=== PATIENT | male | born 1950 | race Caucasian/White ===

== ENCOUNTER → 2017-02-18 | Outpatient (CLI) | payer OTHER, MEDICARE ==
[~2017-02-18] MED LIST: CEPH500C PO; OXYC1TAB3 PO; UNABLE
[2017-02-18 12:56] LABS: BLOOD UREA NITROGEN 14 mg/dl (7-18); BUN/CREATININE RATIO 12.8 (10-20); CALCIUM 9.1 mg/dl (8.5-10.1); CARBON DIOXIDE 27 mmol/L (21-32); CHLORIDE 104 mmol/L (98-107); CHOLESTEROL 171 mg/dl (0-200); GLUCOSE 105 mg/dl (70-99); POTASSIUM 4.1 mmol/L (3.5-5.1); SODIUM 138 mmol/L (136-145)
[2017-02-18 13:06] LABS: CHOLESTEROL/HDL RATIO 3.9; HDL CHOLESTEROL 44 mg/dl; TRIGLYCERIDES 345 mg/dl (0-150); VERY LOW DENSITY LIPOPROT CALC 69 mg/dl
[2017-02-18 13:09] LABS: ESTIMATED AVERAGE GLUCOSE 108 mg/dl; HA1C FLAG Normal (Normal)
== END | disposition home or self-care (01) ==
LOC: C.LABSPEC 12:24
PROVIDERS: ATTEND Internal Medicine
DX: Z00.01 Encounter for general adult medical examination with abnormal findings (principal); R73.9 Hyperglycemia, unspecified; I10 Essential (primary) hypertension; E78.5 Hyperlipidemia, unspecified; E03.9 Hypothyroidism, unspecified

== ENCOUNTER → 2017-03-19 | Outpatient (CLI) | payer OTHER, MEDICARE | END | disposition home or self-care (01) | LOC: C.LABSPEC 15:31 | PROVIDERS: ATTEND Internal Medicine | DX: Z12.11 Encounter for screening for malignant neoplasm of colon (principal) ==

== ENCOUNTER → 2017-05-14 | Outpatient (CLI) | payer OTHER, MEDICARE ==
[~2017-05-14] MED LIST changes: +OXYC-90 PO; -OXYC1TAB3 PO
[2017-05-14 13:40] LABS: HEMOGLOBIN A1C 5.2 % (4.5-5.6)
[2017-05-14 14:33] LABS: ALBUMIN 3.7 gm/dl (3.4-5.0); ALT/SGPT 38 U/L (12-78); AST/SGOT 21 U/L (15-37); BLOOD UREA NITROGEN 13 mg/dl (7-18); CALCIUM 8.9 mg/dl (8.5-10.1); CARBON DIOXIDE 28 mmol/L (21-32); CREATININE 1.11 mg/dl (0.60-1.40); GLUCOSE 105 mg/dl (70-99); SODIUM 135 mmol/L (136-145)
[2017-05-14 14:50] LABS: ALKALINE PHOSPHATASE 40 U/L (45-117); CHOLESTEROL 165 mg/dl (0-200); LDL CHOLESTEROL (DIRECT) 98 mg/dl; TOTAL PROTEIN 7.6 gm/dl (6.4-8.2)
== END | disposition home or self-care (01) ==
LOC: C.LABSPEC 12:26
PROVIDERS: ATTEND Internal Medicine
DX: E78.5 Hyperlipidemia, unspecified (principal); R73.9 Hyperglycemia, unspecified; I10 Essential (primary) hypertension

== ENCOUNTER → 2017-07-08 | Outpatient (CLI) | payer OTHER, MEDICARE ==
[~2017-07-08] MED LIST changes: -OXYC-90 PO; +OXYC1TAB3 PO
== END | disposition home or self-care (01) ==
LOC: C.LABSPEC 14:25
PROVIDERS: ATTEND Internal Medicine
DX: E03.9 Hypothyroidism, unspecified (principal)

== ENCOUNTER 2024-10-26 10:53 | Observation (INO) ==
[2024-10-26] MEDS: ALBUT/IPRATROP 3MG/0.5MG NEB 3 ML VIAL INH STA (11:25)
[2024-10-26] MEDS: SODIUM CHLORIDE 0.9% 500 ML IV ONE (11:25)
[2024-10-26 11:37] LABS: Basophils # (auto) 0.08 K/uL (0.00-0.20); Basophils % (auto) 0.6 %; Eosinophils % (auto) 4.4 %; Hematocrit (blood only) 47.8 % (42.0-52.0); Hemoglobin 16.8 g/dl (14.0-18.0); Immature Granulocytes # (auto) 0.12 K/uL (0.01-0.20); Immature Granulocytes % (auto) 0.9 %; Lymphocytes # (auto) 1.86 K/uL (1.20-3.40); Lymphocytes % (auto) 13.6 %; Mean Corpuscular Hemoglobin 31.1 pg (25.0-34.0); Mean Corpuscular Hgb Conc 35.1 g/dL (32.0-36.0); Mean Corpuscular Volume 88.4 fL (80.0-100.0); Mean Platelet Volume 9.7 fL (9.4-12.4); Monocytes # (auto) 1.01 K/uL (0.11-0.59); Monocytes % (auto) 7.4 %; Neutrophils # (auto) 10.04 K/uL (1.40-6.50); Neutrophils % (auto) 73.1 %; Platelet Count 289 K/uL (130-400); RDW Coefficient of Variation 15.9 % (11.5-14.5); Red Blood Count 5.41 M/uL (4.70-6.10); White Blood Count 13.71 K/ul (4.8-10.8)
--- NOTE | 2024-10-26 11:42 | XRay Report ---
XR chest 1V portable CLINICAL HISTORY: Dyspnea COMPARISON STUDY: 10/18/2024 FINDINGS: Heart size and pulmonary vasculature are normal. No effusion, consolidation, or pneumothora x. IMPRESSION: No acute findings. ACT 112: Negative or not required by law. Electronically signed by: Raheem iH M.D. 10/26/2024 11:40 AM
--- NOTE | 2024-10-26 11:44 | Emergency Department Note ---
Impression & Plan Hypoxia ED Provider Note CHIEF COMPLAINT: Shortness of breath, hypoxia HISTORY OF PRESENT ILLNESS: This 74-year-old male patient past medical history of recent enterovirus infection with diarrhea, acute kidney injury and hospitalization presents to the emergency department with complaints of shortness of breath. The patient went to his primary care today for follow-up after discharge from the hospital and was noted to be hypoxic with an increased work of breathing. Patient's states that this that he is walked since being in the hospital. He denies chest pain or coughing. He admits that there is some bright red blood in his stools which he correlated to frequent bowel movements and wiping. He denies dark black or tarry stools. He has not been vomiting. REVIEW OF SYSTEMS: A review of systems was performed with positives and pertinent negatives listed in the history of present illness. 10 systems were reviewed and are otherwise negative. ALLERGIES: see below MEDICATIONS: see below PMH: see below SOCIAL HISTORY: see below DDx: Pulmonary embolus, pneumonia, anemia, cardiac arrhythmia, dehydration, UTI among others. PHYSICAL EXAM: Vital signs reviewed. General: Well-appearing 74-year-old male, in no significant distress. HEENT: No scleral icterus, PERRLA, neck supple. Moist mucous membranes Cardiovascular: tachycardic but regular, no extra sounds Pulmonary: Clear to auscultation bilaterally, normal work of breathing. Abdomen: Soft, nontender, nondistended, positive bowel sounds. Musculoskeletal: Atraumatic, no peripheral edema. Neurologic: Patient awake alert and oriented x 3, speech is clear Skin: Warm, dry, no rash EMERGENCY DEPARTMENT COURSE/MDM: this patient was evaluated and appeared to be in no significant distress. IV access was obtained and laboratory work was drawn. The patient is noted to be hypoxic on room air and was placed on nasal cannula oxygen with good results. Patient was on 4 L and saturating in the mid 90s. Given his recent hospitalization, CT imaging of the chest was performed to rule out PE and is negative. There is no evidence of pneumonia. patient was given 60 mg of IV Solu-Medrol and a DuoNeb treatment. Respiratory BioFire panel is negative. The etiology of the patient's hypoxia is unclear at this time. Laboratory work is fairly reassuring. He will be evaluated by the hospitalist service for admission and further management. MONITORING: An order for cardiac monitoring was placed and the patient is noted to be in a sinus tachycardia at 107 beats per minute. RADIOLOGY: chest x-ray to my interpretation reveals no evidence of focal lung consolidation or failure. CT of the chest: IMPRESSION: 1. No pulmonary emboli identified. 2. No acute intrathoracic findings. 3. Mild dilatation of the ascending aorta measuring 4.4 cm at the level of the main pulmonary artery. EKG: To my interpretation reveals normal sinus rhythm at 73 bpm, overall low voltage, QTC of 429, no PVC, no PAC. DISPOSITION: Admission Past Med/Surg History Problem List (Updated 10/26/24 @ 19:15 by Polly Olson MD) Hypoxia (Acute) Enteropathogenic Escherichia coli infection Hypoxia Elevated lactic acid level Hypomagnesemia Acute hypokalemia Acute hyponatremia Acute hypotension (Acute) Acidosis, lactic (Acute) Acute dehydration (Acute) Diarrhea (Acute) Colitis (Acute) Acute dehydration (Acute) Nausea (Acute) Gout with tophi Obesity (BMI 30.0-34.9) Hyperlipidemia Hypertension Medical History Diarrhea MINOO (acute kidney injury) Sepsis Bacterial enterocolitis Enteropathogenic Escherichia coli infection Prediabetes Hypothyroidism Depression Hearing deficit [facility] Surgical History History of wisdom tooth extraction History of bunionectomy RT FOOT History of colonoscopy Family History Son Family history of diabetes mellitus Denies family history of Ovarian cancer Prostate cancer Myocardial infarction Breast cancer Colorectal cancer Social History Smoking Status: Never smoker Second Hand Exposure: No; Do You Dip or Chew Tobacco: No; Hx Alcohol Use: Yes Alcohol type: beer Hx Substance Use: No Preferred Language: Hebrew Communication Ability: Effective Communication Ability Comment: Graduated from 12th grade Hearing Ability: Normal Escrow Representative Required: No Beliefs That Will Affect Care: None marital status: marital status details: 1 son killed @ MVA @ 29 yrs of age due to hypoglycemia in car from [place] Current Living Situation: Spouse Current Living Situation Comment: Lives with at home; walks and drives independently current occupational status: retired and 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 How many Children do You have: 1 How many Children do You have Comment: 1 surviving son, 56 yrs old, and living with patient's granddaughter. 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 Feels Safe at Home: Yes Safety Concerns: Feels Safe At This Time Diet: regular caffeine: Yes Dental Care, Regularly: Yes Physical Activity Frequency: 3-4 Times per Week Seatbelt Use: always Do you think of yourself as: straight/heterosexual Assistive Devices: Glasses Allergies Allergies Allergy/AdvReac Type Severity Reaction Status Date / Time No Known Allergies Allergy Verified 10/26/24 10:20 Home Meds Home Medications Medication Instructions Recorded Confirmed aspirin 81 mg tablet,delayed 81 mg PO QAM 10/10/18 10/26/24 release cholecalciferol (vitamin D3) 50 50 mcg PO DAILY 10/13/24 10/26/24 mcg (2,000 unit) tablet (Vitamin D3) cyanocobalamin (vitamin B-12) 1,000 mcg PO DAILY 10/13/24 10/26/24 1,000 mcg tablet (Vitamin B-12) ondansetron HCl 4 mg tablet 4 mg PO Q8H PRN Nausea And Vomiting 10/26/24 10/26/24 vit C 50 mg-E 15 unit-zinc cit 4.5 2 tab PO DAILY 10/26/24 10/26/24 mg-lutein 2.5 mg-zeaxan chew tablet ([facility]) Previous Rx's Medication Instructions Recorded bupropion HCl 150 mg tablet,12 hr 150 mg PO BID #180 ea 12/12/23 sustained-release allopurinol 300 mg tablet 300 mg PO DAILY #90 tabs 03/09/24 atorvastatin 20 mg tablet 20 mg PO QPM #90 tabs 07/31/24 levothyroxine 150 mcg tablet 150 mcg PO 6XWK #90 tabs 08/25/24 metoprolol tartrate 25 mg tablet 25 mg PO BID #180 tabs 08/25/24 olmesartan 40 mg tablet 40 mg PO DAILY #90 tabs 08/25/24 famotidine 40 mg tablet (Pepcid) 40 mg PO BID heartburn, dyspepsia, 10/19/24 nausea/vomiting #60 tabs loperamide 2 mg capsule 2 mg PO Q4 PRN loose stool #180 10/19/24 caps magnesium oxide 400 mg PO DAILY #30 tabs 10/19/24 potassium chloride 20 mEq 20 meq PO DAILY #30 tabs 10/19/24 tablet,extended release Results & Data (ED) Vital Signs Vital Signs - 24 hr 10/26/24 10:56 10/26/24 11:04 10/26/24 11:18 Temperature 36.4 C L Temperature Source Oral Pulse Rate 116 H 110 H 107 H Pulse Rate [Exercises] Pulse Rate from SpO2 Sensor Respiratory Rate 18 22 20 Respiratory Rate [Exercises] Blood Pressure 120/81 118/87 Blood Pressure Mean 94 92 Pulse Oximetry 95 93 Pulse Oximetry [Exercises] Oxygen Delivery Method Room Air Nasal Cannula Oxygen Flow Rate 4 Sepsis Recent Fever Within 48 Hours No Sepsis New/Unexplained Change in Mental Status N/A Sepsis Action Taken by Nursing No Action Required 10/26/24 11:18 10/26/24 11:33 10/26/24 11:42 Temperature Temperature Source Pulse Rate 107 H 109 H 102 H Pulse Rate [Exercises] Pulse Rate from SpO2 Sensor 106 H 106 H 102 H Respiratory Rate 20 13 14 Respiratory Rate [Exercises] Blood Pressure Blood Pressure Mean Pulse Oximetry 95 95 97 Pulse Oximetry [Exercises] Oxygen Delivery Method Oxygen Flow Rate Sepsis Recent Fever Within 48 Hours Sepsis New/Unexplained Change in Mental Status Sepsis Action Taken by Nursing 10/26/24 11:54 10/26/24 11:57 10/26/24 12:20 Temperature Temperature Source Pulse Rate 101 H 99 H Pulse Rate [Exercises] Pulse Rate from SpO2 Sensor 101 H 99 H Respiratory Rate 17 13 Respiratory Rate [Exercises] Blood Pressure 118/93 115/73 Blood Pressure Mean 101 83 Pulse Oximetry 97 95 Pulse Oximetry [Exercises] Oxygen Delivery Method Oxygen Flow Rate Sepsis Recent Fever Within 48 Hours Sepsis New/Unexplained Change in Mental Status Sepsis Action Taken by Nursing 10/26/24 12:20 10/26/24 12:24 10/26/24 12:27 Temperature Temperature Source Pulse Rate 99 H 100 H Pulse Rate [Exercises] Pulse Rate from SpO2 Sensor 98 H 101 H Respiratory Rate 20 18 Respiratory Rate [Exercises] Blood Pressure 115/73 Blood Pressure Mean 83 Pulse Oximetry 95 94 Pulse Oximetry [Exercises] Oxygen Delivery Method Oxygen Flow Rate Sepsis Recent Fever Within 48 Hours Sepsis New/Unexplained Change in Mental Status Sepsis Action Taken by Nursing 10/26/24 12:30 10/26/24 12:30 10/26/24 12:31 Temperature Temperature Source Pulse Rate 99 H Pulse Rate [Exercises] Pulse Rate from SpO2 Sensor Respiratory Rate Respiratory Rate [Exercises] Blood Pressure 117/83 117/83 Blood Pressure Mean 94 94 Pulse Oximetry Pulse Oximetry [Exercises] Oxygen Delivery Method Oxygen Flow Rate Sepsis Recent Fever Within 48 Hours Sepsis New/Unexplained Change in Mental Status Sepsis Action Taken by Nursing 10/26/24 12:33 10/26/24 12:54 10/26/24 13:04 Temperature Temperature Source Pulse Rate 100 H 98 H Pulse Rate [Exercises] Pulse Rate from SpO2 Sensor 100 H 98 H Respiratory Rate 15 15 Respiratory Rate [Exercises] Blood Pressure 122/78 122/78 Blood Pressure Mean 92 86 Pulse Oximetry 94 96 Pulse Oximetry [Exercises] Oxygen Delivery Method Oxygen Flow Rate Sepsis Recent Fever Within 48 Hours Sepsis New/Unexplained Change in Mental Status Sepsis Action Taken by Nursing 10/26/24 13:04 10/26/24 13:18 10/26/24 13:21 Temperature Temperature Source Pulse Rate 95 H 96 H Pulse Rate [Exercises] Pulse Rate from SpO2 Sensor 94 H 96 H Respiratory Rate 16 15 Respiratory Rate [Exercises] Blood Pressure 122/78 Blood Pressure Mean 86 Pulse Oximetry 94 94 Pulse Oximetry [Exercises] Oxygen Delivery Method Oxygen Flow Rate Sepsis Recent Fever Within 48 Hours Sepsis New/Unexplained Change in Mental Status Sepsis Action Taken by Nursing 10/26/24 13:36 10/26/24 13:57 10/26/24 14:00 Temperature Temperature Source Pulse Rate 95 H 94 H Pulse Rate [Exercises] Pulse Rate from SpO2 Sensor 96 H 94 H Respiratory Rate 15 17 Respiratory Rate [Exercises] Blood Pressure 130/82 Blood Pressure Mean 110 Pulse Oximetry 91 91 Pulse Oximetry [Exercises] Oxygen Delivery Method Oxygen Flow Rate Sepsis Recent Fever Within 48 Hours Sepsis New/Unexplained Change in Mental Status Sepsis Action Taken by Nursing 10/26/24 14:00 10/26/24 14:03 10/26/24 14:39 Temperature Temperature Source Pulse Rate 94 H 96 H Pulse Rate [Exercises] Pulse Rate from SpO2 Sensor 94 H 95 H Respiratory Rate 14 15 Respiratory Rate [Exercises] Blood Pressure 130/82 Blood Pressure Mean 110 Pulse Oximetry 93 91 Pulse Oximetry [Exercises] Oxygen Delivery Method Oxygen Flow Rate Sepsis Recent Fever Within 48 Hours Sepsis New/Unexplained Change in Mental Status Sepsis Action Taken by Nursing 10/26/24 14:41 10/26/24 14:50 Temperature Temperature Source Pulse Rate Pulse Rate [Exercises] 110 H Pulse Rate from SpO2 Sensor Respiratory Rate Respiratory Rate [Exercises] 26 H Blood Pressure 146/90 H Blood Pressure Mean 97 Pulse Oximetry Pulse Oximetry [Exercises] 90 Oxygen Delivery Method Room Air Oxygen Flow Rate Sepsis Recent Fever Within 48 Hours Sepsis New/Unexplained Change in Mental Status Sepsis Action Taken by [facility]sp Medications Current Medication List: was personally reviewed by ks Laboratory Data Attestation: I reviewed the patient's lab results. 10/26/24 11:09 10/26/24 11:09 Lab Results 10/26/24 10/26/24 Range/Units 11:09 11:27 WBC 13.71 H (4.8-10.8) K/ul RBC 5.41 (4.70-6.10) M/uL Hgb 16.8 (14.0-18.0) g/dl Hct 47.8 (42.0-52.0) % MCV 88.4 (80.0-100.0) fL MCH 31.1 (25.0-34.0) pg MCHC 35.1 (32.0-36.0) g/dL RDW Std Deviation 50.0 H (36.4-46.3) fL RDW Coeff of Marlee 15.9 H (11.5-14.5) % Plt Count 289 (130-400) K/uL MPV 9.7 (9.4-12.4) fL Immature Gran % (Auto) 0.9 % Neut % (Auto) 73.1 % Lymph % (Auto) 13.6 % [place] % (Auto) 7.4 % Eos % (Auto) 4.4 % Baso % (Auto) 0.6 % Neut # (Auto) 10.04 H (1.40-6.50) K/uL Lymph # (Auto) 1.86 (1.20-3.40) K/uL [place] # (Auto) 1.01 H (0.11-0.59) K/uL Eos # (Auto) 0.60 H (0.00-0.50) K/uL Baso # (Auto) 0.08 (0.00-0.20) K/uL Immature Gran # (Auto) 0.12 (0.01-0.20) K/uL PT 11.4 (9.0-12.0) Seconds INR 1.1 (0.9-1.1) APTT 28 (21-31) Seconds PTT Ratio 1.0 Sodium 133 L (136-145) mmol/L Potassium 3.6 (3.5-5.1) mmol/L Chloride 102 (98-107) mmol/L Carbon Dioxide 21 (21-32) mmol/L Anion Gap 10 (3-11) BUN 10 (6-23) mg/dl Creatinine 1.22 (0.6-1.4) mg/dl Est Cr Clr Drug Dosing 58.3 ml/min eGFR 62.21 BUN/Creatinine Ratio 8.2 L (10-20) Glucose 94 (70-99(Fasting)) mg/dl Calcium 8.6 (8.6-10.3) mg/dl Magnesium 1.7 (1.7-2.4) mg/dl Total Bilirubin 0.8 (0.2-1.0) mg/dl AST 37 (13-39) U/L ALT 68 H (7-52) U/L Alkaline Phosphatase 69 (34-104) U/L Troponin I High Sens 11.6 (0-20) pg/ml Total Protein 6.5 (6.0-8.3) gm/dl Albumin 3.5 (3.4-5.0) gm/dl Globulin 3.0 (2.5-4.0) gm/dl Albumin/Globulin Ratio 1.2 (0.9-2) Procalcitonin 0.05 (0-0.5) ng/ml Adenovirus (PCR) Not Detected (NotDetected) B. pertussis DNA (PCR) Not Detected (NotDetected) B.parapertussis DNA PCR Not Detected (NotDetected) C. pneumoniae DNA (PCR) Not Detected (NotDetected) Coronavirus OC43 (PCR) Not Detected (NotDetected) Coronavirus HKU1 (PCR) Not Detected (NotDetected) Coronavirus 229E (PCR) Not Detected (NotDetected) SARS-CoV-2 (PCR) Not Detected (NotDetected) Coronavirus NL63 (PCR) Not Detected (NotDetected) Human Metapneumovir PCR Not Detected (NotDetected) Influenza Type A (PCR) Not Detected (NotDetected) Influenza Type B (PCR) Not Detected (NotDetected) M. pneumoniae (PCR) Not Detected (NotDetected) Parainfluenza 1 (PCR) Not Detected (NotDetected) Parainfluenza 2 (PCR) Not Detected (NotDetected) Parainfluenza 3 (PCR) Not Detected (NotDetected) Parainfluenza 4 (PCR) Not Detected (NotDetected) RSV (PCR) Not Detected (NotDetected) Entero/Rhino (PCR) Not Detected (NotDetected) Blood Type O Positive Antibody Screen NEGATIVE Administered Medications Discontinued Medications Albuterol (Albut/Ipratrop 3mg/0.5mg Neb 3 Ml Vial) 3 ml INH NOW STA Stop: 10/26/24 11:19 Last Admin: 10/26/24 11:25 Dose: 3 ml Documented By: SAVAGE Sodium Chloride (Nss) 500 mls @ 999 mls/hr IV .Q31M ONE Stop: 10/26/24 11:49 Last Infusion: 10/26/24 12:26 Dose: Infused Documented By: Admin: 10/26/24 11:25 Dose: 999 mls/hr Documented By: SAVAGE Ioversol (Optiray 320 125ml) 115 ml IV ONCE ONE Stop: 10/26/24 12:46 Last Admin: 10/26/24 12:45 Dose: 115 ml Documented By: ABS Methylprednisolone (Methylprednisolone 125 Mg/2 Ml Vial) 60 mg IV NOW STA Stop: 10/26/24 13:42 Last Admin: 10/26/24 13:46 Dose: 60 mg Documented By: SAVAGE Imaging Data Radiologist's Impression: Chest X-Ray 10/26/24 11:18 XR chest 1V portable CLINICAL HISTORY: Dyspnea COMPARISON STUDY: 10/18/2024 FINDINGS: Heart size and pulmonary vasculature are normal. No effusion, consolidation, or pneumothorax. IMPRESSION: No acute findings. ACT 112: Negative or not required by law. Electronically signed by: Raheem Hi M.D. 10/26/2024 11:40 AM Chest CTA 10/26/24 12:23 CT ANGIOGRAM OF THE CHEST CLINICAL HISTORY: Shortness of breath. Hypoxia. COMPARISON STUDY: Chest radiograph October 18, 2024 and chest radiograph performed earlier today. TECHNIQUE: Following the IV administration of 115 cc of Optiray 320, CT angiogram of the chest was performed from the upper abdomen to the thoracic inlet utilizing the pulmonary embolus protocol. Images are reviewed in the axial, sagittal, and coronal planes. 3-D MIPS images are created and assessed. IV contrast was administered without complication. A dose lowering technique was utilized adhering to the principles of ALARA. CT DOSE: 1113.45 mGy.cm FINDINGS: No pulmonary emboli are identified. There is no thoracic aortic dissection. There is mild dilatation of the ascending aorta measuring 4.4 cm at the level of the main pulmonary artery. There is no dissection within the ascending aorta. Opacification of the descending thoracic aorta is suboptimal. Size of the heart is normal. There is no pericardial effusion. A small hiatal hernia is present. There is no pneumothorax or pleural effusion. No consolidation to suggest pneumonia. Small nodular densities within the right middle lobe are unchanged since abdominal CT of October 08, 2024. These are probably chronic. There is no consolidation to suggest pneumonia. Water attenuation left upper pole renal lesions were shown to represent cysts on recent abdominal CT. IMPRESSION: 1. No pulmonary emboli identified. 2. No acute intrathoracic findings. 3. Mild dilatation of the ascending aorta measuring 4.4 cm at the level of the main pulmonary artery. ACT 112: Negative or not required by law. Electronically signed by: Marky Nieto M.D. 10/26/2024 1:22 PM Discharge Plan Visit Data Chief Complaint: Referred by Doctor Stated Complaint: DOC REF OXYGEN LOW ED Provider: Polly Olson Discharge Problem: Hypoxia Patient Disposition: Admitted As Inpatient Condition: Fair Discharge Instructions Interventions: ED Discharge Assessment Last Done: 10/26/24 17:15
[2024-10-26 11:54] LABS: Albumin Globulin Ratio 1.2 (0.9-2); Albumin Level 3.5 gm/dl (3.4-5.0); BUN Creatinine Ratio 8.2 (10-20); Bilirubin,Total 0.8 mg/dl (0.2-1.0); Calcium 8.6 mg/dl (8.6-10.3); Creatinine Clr Calc Pharmacy 58.3 ml/min; Magnesium 1.7 mg/dl (1.7-2.4); Potassium 3.6 mmol/L (3.5-5.1); Total Protein 6.5 gm/dl (6.0-8.3)
[2024-10-26 12:02] LABS: Troponin I High Sensitivity 11.6 pg/ml (0-20)
[2024-10-26 12:04] LABS: INR 1.1 (0.9-1.1); Partial Thromboplastin Time 28 Seconds (21-31); Prothrombin Time 11.4 Seconds (9.0-12.0)
[2024-10-26 12:34] LABS: Adenovirus PCR Not Detected (NotDetected); Bordetella parapertussis PCR Not Detected (NotDetected); Bordetella pertussis PCR Not Detected (NotDetected); Chlamydia pneumoniae PCR Not Detected (NotDetected); Coronavirus 229E PCR Not Detected (NotDetected); Coronavirus CoV-2 (COVID19)PCR Not Detected (NotDetected); Coronavirus HKU1 PCR Not Detected (NotDetected); Coronavirus NL63 PCR Not Detected (NotDetected); Coronavirus OC43PCR Not Detected (NotDetected); Human Metapneumovirus PCR Not Detected (NotDetected); Influenza A PCR Not Detected (NotDetected); Influenza B PCR Not Detected (NotDetected); Mycoplasma pneumoniae PCR Not Detected (NotDetected); Parainfluenza Virus 1 PCR Not Detected (NotDetected); Parainfluenza Virus 2 PCR Not Detected (NotDetected); Parainfluenza Virus 3 PCR Not Detected (NotDetected); Parainfluenza Virus 4 PCR Not Detected (NotDetected); Respiratory Syncytial VirusPCR Not Detected (NotDetected); Rhinovirus/Enterovirus PCR Not Detected (NotDetected)
[2024-10-26] MEDS: OPTIRAY 320 125ml IV ONE (12:45)
--- NOTE | 2024-10-26 13:24 | CT Scan Report ---
CT ANGIOGRAM OF THE CHEST CLINICAL HISTORY: Shortness of breath. Hypoxia. COMPARISON STUDY: Chest radiograph October 18, 2024 and chest radiograph performed earlier today. TECHNIQUE: Following the IV administration of 115 cc of Optiray 320, CT angiogram of the chest was pe rformed from the upper abdomen to the thoracic inlet utilizing the pulmonary embolus protocol. Images are reviewed in the axial, sagittal, and coronal planes. 3-D MIPS images are created and assessed. I V contrast was administered without complication. A dose lowering technique was utilized adhering to the principles of ALARA. CT DOSE: 1113.45 mGy.cm FINDINGS: No pulmonary emboli are identified. There is no thoracic aortic dissection. There is mild d ilatation of the ascending aorta measuring 4.4 cm at the level of the main pulmonary artery. There is no dissection within the ascending aorta. Opacification of the descending thoracic aorta is suboptim al. Size of the heart is normal. There is no pericardial effusion. A small hiatal hernia is present. There is no pneumothorax or pleural effusion. No consolidation to suggest pneumonia. Small nodular de nsities within the right middle lobe are unchanged since abdominal CT of October 08, 2024. These are prob ably chronic. There is no consolidation to suggest pneumonia. Water attenuation left upper pole renal lesions were shown to represent cysts on recent abdominal CT. IMPRESSION: 1. No pulmonary emboli identified. 2. No acute intrathoracic findings. 3. Mild dilatation of the ascending aorta measuring 4.4 cm at the level of the main pulmonary artery. ACT 112: Negative or not required by law. Electronically signed by: Marky Nieto M.D. 10/26/2024 1:22 PM
[2024-10-26] MEDS: methylPREDNISolone 125 MG/2 ML VIAL IV STA (13:46)
--- NOTE | 2024-10-26 13:51 | History & Physical Report ---
Date of Service October 26, 2024 Assessment & Plan (1) Hypoxia: (2) Enteropathogenic Escherichia coli infection: (3) Hypertension: Plan This patient is a 74yo male who presented on 10/26 at the behest of his PCP for new onset hypoxia. Coming in for hypoxia workup. #Hypoxia 88% on RA on arrival after ambulation Note: Patient was also hypoxic around 88% during prior admissions on 10/13 and 10/18 No h/o asthma or COPD No supplemental oxygen at baseline Does not follow with pulmonology He reports that this was been a gradual decline over the past 4 years ever since his COVID infection; acute worsening over the past 2 to 3 weeks Unclear etiology; DDx includes new onset heart failure, aspiration pneumonia (vomiting over the past week due to EPEC colitis), and nonspecific interstitial pneumonitis d/t COVID infection in 2019 (among other etiologies) Leukocytosis mildly elevated at 13 on arrival; procalcitonin WNL; will defer antibiotics at this time. Of note, he received a dose of IV steroids in the ER Ambulatory pulse ox study ordered, pending Echocardiogram ordered, pending Respiratory biofire negative Chest CTA without pulmonary embolism Titrate supplemental oxygen to maintain SpO2 >94% Continuous pulse oximetry If acute worsening, will consult pulmonology; otherwise, would recommend outpatient PFTs and pulm f/u Formal two-step prior to d/c ordered # Recent h/o infective colitis | diarrhea [place]izations on 10/13 and 10/18 for enteropathogenic E. coli infection, now improving Continue famotidine Continue loperamide PRN K + mag supplements daily #Episodes of hypotension During most recent hospitalization Suspected due to GI losses in the setting of diarrhea We will plan to restart patient on metoprolol BID, as he has been normotensive in the emergency department Hold olmesartan for now, but plan to restart over hospital course if BP tolerating #Hypothyroidism-recent TSH normal Continue levothyroxine #HLD Reinitiate atorvastatin Disposition: Obs - MedSurg VTE PPx: Lovenox 40 mg SQ q24h History of Present Illness Chief Complaint: Referred by Doctor Primary Care Provider: Regina Howe MD Mr. Mccain is a 74-year-old male with PMH of gout, EPEC colitis, HLD, and HTN. He presented on 10/26 at the behest of his PCP for worsening العراقي and hypoxia. Patient was hypoxic at 86% on room air on arrival which was after walking across the parking lot into the doctor's office; SpO2 96% on 4L NC in the ER. He denies SOB at rest. He reports that ever since his COVID infection that lasted 1 month in 2019, his breathing has gradually gotten worse from year to year. Ov er the past year, it has consistently "gone down[hill]", with an acute worsening over the past several weeks. Patient does believe that being in the hospital could be contributory and in regard to physical deconditioning. 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 No home pulse ox. No prior history of COPD or asthma. Patient denies smoking or tobacco use. No supplemental oxygen at baseline or CPAP at night. No sick contacts. Remote history of EPI colitis, and patient has had ongoing abdominal cramps, nausea, vomiting, and diarrhea. He also reports that he was gagging on his meal yesterday; unsure if this went down the wrong pipe. No prior history of DVT/PE. He took all his regular morning medicine today. New medications include potassium and magnesium supplementation, famotidine, loperamide, as well as azithromycin (recently finished full course). His blood pressure medications (metoprolol and olmesartan) are currently on hold but were set to be restarted tomorrow on 10/27. Patient is retired, but formally worked in a [employer] in [place], as well as a job spreading [employer]. Patient's notes he has had a hoarse/raspy voice, which is new for him over the past several weeks. Patient's vitals are stable at admission; SpO2 93% on 4L NC. ED course: NSS 500 mL IV DuoNeb 3 mL Solu-Medrol 60 mg IV ROS: Patient endorses body aches, العراقي (ongoing), nausea, diarrhea (ongoing, improving from prior), abdominal cramping, and one episode of vomiting (after a meal yesterday), Patient denies fever, chills, night-sweat, fainting, falls, headaches, rashes, tick bites, sore throat, difficulty swallowing, chest pain, chest palpitations, pleuritic CP, cough, nausea, vomiting, or burning with urination. Allergies Allergy/AdvReac Type Severity Reaction Status Date / Time No Known Allergies Allergy Verified 10/26/24 10:20 Home Medications Medication Instructions Recorded Confirmed Type aspirin 81 mg tablet,delayed 81 mg PO QAM 10/10/18 10/26/24 History release bupropion HCl 150 mg tablet,12 hr 150 mg PO BID #180 ea 12/12/23 10/26/24 Rx sustained-release allopurinol 300 mg tablet 300 mg PO DAILY #90 tabs 03/09/24 10/26/24 Rx atorvastatin 20 mg tablet 20 mg PO QPM #90 tabs 07/31/24 10/26/24 Rx levothyroxine 150 mcg tablet 150 mcg PO 6XWK #90 tabs 08/25/24 10/26/24 Rx metoprolol tartrate 25 mg tablet 25 mg PO BID #180 tabs 08/25/24 10/26/24 Rx olmesartan 40 mg tablet 40 mg PO DAILY #90 tabs 08/25/24 10/26/24 Rx cholecalciferol (vitamin D3) 50 50 mcg PO DAILY 10/13/24 10/26/24 History mcg (2,000 unit) tablet (Vitamin D3) cyanocobalamin (vitamin B-12) 1,000 mcg PO DAILY 10/13/24 10/26/24 History 1,000 mcg tablet (Vitamin B-12) famotidine 40 mg tablet (Pepcid) 40 mg PO BID heartburn, dyspepsia, 10/19/24 10/26/24 Rx nausea/vomiting #60 tabs loperamide 2 mg capsule 2 mg PO Q4 PRN loose stool #180 10/19/24 10/26/24 Rx caps magnesium oxide 400 mg PO DAILY #30 tabs 10/19/24 10/26/24 Rx potassium chloride 20 mEq 20 meq PO DAILY #30 tabs 10/19/24 10/26/24 Rx tablet,extended release ondansetron HCl 4 mg tablet 4 mg PO Q8H PRN Nausea And Vomiting 10/26/24 10/26/24 History vit C 50 mg-E 15 unit-zinc cit 4.5 2 tab PO DAILY 10/26/24 10/26/24 History mg-lutein 2.5 mg-zeaxan chew tablet ([employer]) Past Med/Surg History Problem List (Updated 10/26/24 @ 16:18 by Isra Boone PA-C) Enteropathogenic Escherichia coli infection Hypoxia Elevated lactic acid level Hypomagnesemia Acute hypokalemia Acute hyponatremia Acute hypotension (Acute) Acidosis, lactic (Acute) Acute dehydration (Acute) Diarrhea (Acute) Colitis (Acute) Acute dehydration (Acute) Nausea (Acute) Gout with tophi Obesity (BMI 30.0-34.9) Hyperlipidemia Hypertension Medical History Diarrhea MINOO (acute kidney injury) Sepsis Bacterial enterocolitis Enteropathogenic Escherichia coli infection Prediabetes Hypothyroidism Depression Hearing deficit [facility] Surgical History History of wisdom tooth extraction History of bunionectomy RT FOOT History of colonoscopy Family History Son Family history of diabetes mellitus Denies family history of Ovarian cancer Prostate cancer Myocardial infarction Breast cancer Colorectal cancer Social History Smoking Status: Never smoker Second Hand Exposure: No; Do You Dip or Chew Tobacco: No; Hx Alcohol Use: Yes (up to 2 cans of beer per YEAR, never on a daily, weekly, or monthly basis.) Alcohol type: beer Hx Substance Use: No Preferred Language: Ukrainian Communication Ability: Effective Communication Ability Comment: Graduated from 12th grade Hearing Ability: Normal 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 How many Children do You have: 1 How many Children do You have Comment: 1 surviving son, 56 yrs old, and living with patient's granddaughter. 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 Feels Safe at Home: Yes Diet: regular caffeine: Yes Dental Care, Regularly: Yes Physical Activity Frequency: 3-4 Times per Week Seatbelt Use: always Do you think of yourself as: straight/heterosexual Assistive Devices: None Review of Systems Review of Systems: See HPI above Physical Exam Physical Exam: General: no acute distress; at bedside; non-toxic appearing; frail appearing; cooperative; SpO2 96% on 2L, 93% on RA HEENT: normocephalic, atraumatic; no scleral icterus; PERRLA; vision intact; hard of hearing Neck: supple; trachea midline Skin: warm, dry without signs of tenting; no cyanosis; no rashes, bruising, lesions, or erythema noted CV: chest wall NTP; RRR; S1/S2 normal; no murmurs/rubs/gallops; pulses intact and symmetric at radial, DP, and PT Lungs: no acute respiratory distress; symmetrical chest wall expansion; diminished breath sounds across all lung palacios w/o adventitious sounds; no wheezing ABD: Soft, NTP; BS present; no rebound/guarding; no distention MSK: no tics or fasciculations; no edema noted in the LEs b/l, nonerythematous Neuro: A&Ox3; normal mood and affect; fluent speech; no focal deficits; sensation intact and symmetric in the lower extremities bilaterally Results & Data Results & Data Vital Signs (Past 12 Hours) Vital Signs Temp Pulse Resp BP Pulse Ox O2 Del Method O2 Flow Rate 10/26/24 12:54 98 H 15 122/78 96 10/26/24 12:33 100 H 15 94 10/26/24 12:31 99 H 10/26/24 12:30 117/83 10/26/24 12:30 117/83 10/26/24 12:27 100 H 18 94 10/26/24 12:24 99 H 20 95 10/26/24 12:20 115/73 10/26/24 12:20 115/73 10/26/24 11:57 99 H 13 95 10/26/24 11:54 101 H 17 118/93 97 10/26/24 11:42 102 H 14 97 10/26/24 11:33 109 H 13 95 10/26/24 11:18 107 H 20 95 10/26/24 11:18 107 H 20 93 Nasal Cannula 4 10/26/24 11:04 110 H 22 118/87 10/26/24 10:56 36.4 C L 116 H 18 120/81 95 Room Air Laboratory Results CBC, PT/INR, BMP, magnesium, LFTs, troponin, procalcitonin, UA, respiratory BioFire panel reviewed Diagnostic Findings Chest CT reviewed ECG Additional Comments: ECG revealed sinus tachycardia at 110 bpm; QTc 481 Code Status & VTE Plan Code Status Full code VTE Prophylaxis Plan VTE Prophylaxis will be ordered: Yes Supervising Physician Co-Signing Physician Notes SANGITA Supervision Note: I personally saw and examined the patient. I verified all nesbitt points and agree with SANGITA Boone with the following exceptions and/or additions: S-this patient is a 74-year-old male with 2 recent hospitalizations for E. coli colitis which is now improving, here after being found to be temporarily hypoxemic at his PCPs office after walking in from the parking lot. He has had intermittent shortness of breath/dyspnea on exertion worsening over the years since he had COVID in 2019. He denies chest pains or cough or cold symptoms, no fevers or chills. No leg swelling or weight gain. History and ROS otherwise reviewed as above O- Vitals reviewed Gen: AAOx3, NAD HEENT: Anicteric sclerae, EOMI CV: RRR no mgr nl S1S2 Pulm: CTAB no wcr Abd: +BS soft NT ND no masses or hernias Ext: No edema Skin: No rashes, warm/dry Neuro: Full strength throughout A/[id number]-old male here with temporary hypoxemia after ambulation. Suspect potentially some early restrictive lung disease but would need formal PFTs to diagnose. Will keep overnight for observation, get echocardiogram to rule out cardiac issues, and plan for 2 step walk test to see if needs supplemental O2 wi th ambulation prior to discharge. Recommend follow-up with pulmonology as an outpatient with formal PFTs. PG Care Time/CCT Total # of Minutes Spent Total Time Spent with Patient: Total time spent is greater than 50% in coordination of care (as documented) at patient's floor/unit and/or counseling patient: Coding [place] [address] INT INP/OBS CARE 3/75MIN Patient Type Established Medical Decision Making High Complexity Diagnoses Hypoxia R09.02 Enteropathogenic Escherichia coli infection A04.0 Hypertension I10
[2024-10-26 16:25] LABS: Appearance Urine Clear (Clear); Bacteria Urine Automated None Seen (None Seen); Bilirubin Urine Negative (Negative); Blood Urine Negative (Negative); Cast Urine Automated 0-2 /lpf (0-2); Color Urine Yellow; Epithelial Cell Urine Auto 0-2 /hpf (0-2); Glucose Urine UA Negative (Negative); Ketones Urine Negative (Negative); Leukocyte Esterase Urine Negative (Negative); Nitrite Urine Negative (Negative); Protein Urine Trace (Negative); RBC Urine Automated 0-2 /hpf (0-2); Specific Gravity Urine > 1.045 (1.000-1.030); Urobilinogen Urine Negative (Negative); WBC Urine Automated 0-5 /hpf (0-5); pH Urine 5.5 (4.5-7.5)
[2024-10-26] MEDS ORDERED: MELATONIN 3 MG TAB PO PRN (17:43)
[2024-10-26] MEDS ORDERED: ACETAMINOPHEN 325 MG TAB PO PRN (17:43)
[2024-10-26] MEDS: ENOXAPARIN INJ 40 MG/0.4 ML SYR SQ SCH (20:18)
[2024-10-26] MEDS: FAMOTIDINE 40 MG TABLET PO SCH (20:18)
[2024-10-26] MEDS: buPROPion SR 150 MG TABCR PO SCH (20:18)
[2024-10-26] MEDS: ATORVASTATIN 20 MG TAB PO SCH (20:18)
[2024-10-26] MEDS: METOPROLOL TARTRATE 25 MG TAB PO SCH (20:19)
[2024-10-26] MEDS: ONDANSETRON 4 MG OD TAB PO PRN (22:36)
[2024-10-27] MEDS: LEVOTHYROXINE SODIUM 150 MCG TABLET PO SCH (06:08)
--- NOTE | 2024-10-27 06:14 | Electrocardiogram Report ---
Test Reason : Blood Pressure : */* mmHG Vent. Rate : 110 BPM Atrial Rate : 110 BPM P-R Int : 178 ms QRS Dur : 86 ms QT Int : 356 ms P-R-T Axes : -25 0 -18 degrees QTcB Int : 481 ms Sinus tachycardia Cannot rule out Inferior infarct (cited on or before 08-Oct-2024) Prolonged QT Abnormal ECG When compared with ECG of 18-Oct-2024 10:06, Vent. rate has increased by 37 bpm Questionable change in QRS axis Nonspecific T wave abnormality, worse in Inferior leads QT has shortened Confirmed by Gerson Decker ([id number]) on 10/27/2024 6:14:12 AM Referred By: Regina Howe Confirmed By: Gerson Decker
[2024-10-27 07:27] LABS: Basophils # (auto) 0.03 K/uL (0.00-0.20); Basophils % (auto) 0.2 %; Eosinophils # (auto) 0.04 K/uL (0.00-0.50); Eosinophils % (auto) 0.3 %; Hematocrit (blood only) 38.6 % (42.0-52.0); Hemoglobin 14.2 g/dl (14.0-18.0); Immature Granulocytes % (auto) 0.8 %; Lymphocytes # (auto) 1.29 K/uL (1.20-3.40); Lymphocytes % (auto) 10.5 %; Mean Corpuscular Hemoglobin 32.1 pg (25.0-34.0); Mean Corpuscular Hgb Conc 36.8 g/dL (32.0-36.0); Mean Corpuscular Volume 87.3 fL (80.0-100.0); Mean Platelet Volume 9.8 fL (9.4-12.4); Monocytes # (auto) 0.63 K/uL (0.11-0.59); Monocytes % (auto) 5.1 %; Neutrophils % (auto) 83.1 %; Platelet Count 235 K/uL (130-400); RDW Coefficient of Variation 15.1 % (11.5-14.5); RDW Standard Deviation 47.8 fL (36.4-46.3); Red Blood Count 4.42 M/uL (4.70-6.10); White Blood Count 12.29 K/ul (4.8-10.8)
[2024-10-27 07:56] LABS: Albumin Globulin Ratio 1.3 (0.9-2); Albumin Level 3.2 gm/dl (3.4-5.0); BUN Creatinine Ratio 16.2 (10-20); Bilirubin,Total 0.6 mg/dl (0.2-1.0); Creatinine Clr Calc Pharmacy 67.7 ml/min; Globulin 2.4 gm/dl (2.5-4.0); Potassium 3.7 mmol/L (3.5-5.1); Total Protein 5.6 gm/dl (6.0-8.3)
[2024-10-27] MEDS: allopurinoL 300 MG TAB PO SCH (08:50)
[2024-10-27] MEDS: ASPIRIN 81 MG ECTAB PO SCH (08:50)
[2024-10-27] MEDS: POTASSIUM CHLORIDE CRTAB 20 MEQ TABCR PO SCH (08:52)
[2024-10-27] MEDS: SODIUM CHLORIDE 0.9% 1,000 ML IV SCH (08:53)
[2024-10-27] MEDS ORDERED: POTASSIUM CHLORIDE CRTAB 20 MEQ TABCR PO SCH (09:00)
[2024-10-27] MEDS ORDERED: MAGNESIUM OXIDE 400 MG TAB PO SCH (09:00)
[2024-10-27 09:11] LABS: Magnesium 1.7 mg/dl (1.7-2.4)
--- NOTE | 2024-10-27 10:55 | XCELERA ---
[id number]
--- NOTE | 2024-10-27 12:07 | Hospitalist Progress Note ---
"Date of Service October 27, 2024 Assessment & Plan (1) Hypoxia: (2) Enteropathogenic Escherichia coli infection: (3) Hypertension: Plan This patient is a 74yo male with past medical history of hypertension, hyperlipidemia, gout, COVID infection in 2019 with recent admission from 025 to 10/20/2024 for sepsis secondary to E. coli colitis who was sent from PCP office for hypoxia #Hypoxia #Mild leukocytosis 88% on RA on arrival after ambulation Note: Patient was also hypoxic around 88% during prior admissions on 10/13 and 10/18 No h/o asthma or COPD No supplemental oxygen at baseline Does not follow with pulmonology He reports that this was been a gradual decline over the past 4 years ever since his COVID infection; acute worsening over the past 2 to 3 weeks Patient was given 1 dose of steroids in the emergency room He is currently not hypoxic White count elevated, procalcitonin within normal limits Chest CTA without pulmonary embolism or any acute abnormalities Respiratory BioFire negative 2D echo from 10/27/2024 shows EF of 55 to 60% with no regional wall motion abnormalities, mild concentric LVH, mild pulmonary hypertension, dilated aortic root of 4.5 cm, type I diastolic dysfunction Formal two-step evaluation prior to discharge Will benefit from referral to pulmonology as outpatient for evaluation and PFTs # Recent h/o infective colitis | diarrhea #Hyponatremia #Hypomagnesemia [place]izations on 10/13 and 10/18 for enteropathogenic E. coli infection, now improving Continue famotidine Continue loperamide PRN IV fluid hydration with normal saline for 24 hours Patient has not had any diarrhea since yesterday morning Avoid oral magnesium as this can also cause loose stools Magnesium and potassium replacement as needed Monitor renal function and electrolytes # Essential hypertension Hold olmesartan for now, but plan to restart over hospital course if BP tolerating Continue metoprolol #Hypothyroidism -recent TSH normal Continue levothyroxine #HLD Continue atorvastatin CODE STATUS: Full code DVT prophylaxis: Lovenox 40 mg subcutaneous daily Disposition: Likely home tomorrow if medically stable based on two-step evaluation for oxygen Care plan discussed with patient, nursing staff and updated at bedside Admission and Anticipated Discharge Date Admission Date: October 26, 2024 Subjective Patient seen and examined H&P reviewed Radiology reviewed Vital signs reviewed Labs reviewed at bedside Patient states he has not had any diarrhea since yesterday morning Tolerating oral diet without any nausea vomiting or abdominal pain Patient denies any chest pain, shortness of breath, fever, chills, headache, dizziness, lightheadedness. 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 He lives with his , independent of ADLs Physical Exam Physical Exam: General: No acute distress Psych: Awake and alert HEENT: Anicteric sclera, moist oral mucosa CVS: Regular rate and rhythm Lungs: Bilateral air entry, no wheezing noted Abdomen: Soft, nontender, no rebound, no guarding Ext: No lower extremity edema, no calf tenderness Neuro: No focal motor deficits noted Results & Data Results & Data Vital Signs (Past 12 Hours) Vital Signs Temp Pulse Resp BP Pulse Ox O2 Del Method 10/27/24 08:00 Room Air 10/27/24 07:38 36.4 C L 66 18 120/78 96 Room Air 10/27/24 06:11 68 18 104/67 96 Room Air Laboratory Results 10/27/24 10/26/24 10/26/24 07:08 16:07 11:27 WBC 12.29 H RBC 4.42 L Hgb 14.2 Hct 38.6 L MCV 87.3 MCH 32.1 MCHC 36.8 H RDW Std Deviation 47.8 H RDW Coeff of Marlee 15.1 H Plt Count 235 MPV 9.8 Immature Gran % (Auto) 0.8 Neut % (Auto) 83.1 Lymph % (Auto) 10.5 [place] % (Auto) 5.1 Eos % (Auto) 0.3 Baso % (Auto) 0.2 Neut # (Auto) 10.20 H Lymph # (Auto) 1.29 [place] # (Auto) 0.63 H Eos # (Auto) 0.04 Baso # (Auto) 0.03 Immature Gran # (Auto) 0.10 Sodium 130 L Potassium 3.7 Chloride 102 Carbon Dioxide 18 L Anion Gap 10 BUN 17 Creatinine 1.05 Est Cr Clr Drug Dosing 67.7 eGFR 74.49 BUN/Creatinine Ratio 16.2 Glucose 106 H Calcium 8.0 L Magnesium 1.7 Total Bilirubin 0.6 AST 33 ALT 56 H Alkaline Phosphatase 57 Total Protein 5.6 L Albumin 3.2 L Globulin 2.4 L Albumin/Globulin Ratio 1.3 Procalcitonin Urine Color Yellow Urine Appearance Clear Urine pH 5.5 Ur Specific [place] > 1.045 H Urine Protein Trace H Urine Glucose (UA) Negative Urine Ketones Negative Urine Blood Negative Urine Nitrite Negative Urine Bilirubin Negative Urine Urobilinogen Negative Ur Leukocyte Esterase Negative Urine WBC (Auto) 0-5 Urine RBC (Auto) 0-2 U Hyaline Cast (Auto) 0-2 U Epithel Cells (Auto) 0-2 Urine Bacteria (Auto) None Seen Urine Comment Adenovirus (PCR) B. pertussis DNA (PCR) B.parapertussis DNA PCR C. pneumoniae DNA (PCR) Coronavirus OC43 (PCR) Coronavirus HKU1 (PCR) Coronavirus 229E (PCR) SARS-CoV-2 (PCR) Coronavirus NL63 (PCR) Human Metapneumovir PCR Influenza Type A (PCR) Influenza Type B (PCR) M. pneumoniae (PCR) Parainfluenza 1 (PCR) Parainfluenza 2 (PCR) Parainfluenza 3 (PCR) Parainfluenza 4 (PCR) RSV (PCR) Entero/Rhino (PCR) Blood Type O Positive Antibody Screen NEGATIVE 10/26/24 11:09 WBC RBC Hgb Hct MCV MCH MCHC RDW Std Deviation RDW Coeff of Marlee Plt Count MPV Immature Gran % (Auto) Neut % (Auto) Lymph % (Auto) [place] % (Auto) Eos % (Auto) Baso % (Auto) Neut # (Auto) Lymph # (Auto) [place] # (Auto) Eos # (Auto) Baso # (Auto) Immature Gran # (Auto) Sodium Potassium Chloride Carbon Dioxide Anion Gap BUN Creatinine Est Cr Clr Drug Dosing eGFR BUN/Creatinine Ratio Glucose Calcium Magnesium Total Bilirubin AST ALT Alkaline Phosphatase Total Protein Albumin Globulin Albumin/Globulin Ratio Procalcitonin 0.05 Urine Color Urine Appearance Urine pH Ur Specific [place] Urine Protein Urine Glucose (UA) Urine Ketones Urine Blood Urine Nitrite Urine Bilirubin Urine Urobilinogen Ur Leukocyte Esterase Urine WBC (Auto) Urine RBC (Auto) U Hyaline Cast (Auto) U Epithel Cells (Auto) Urine Bacteria (Auto) Urine Comment Adenovirus (PCR) Not Detected B. pertussis DNA (PCR) Not Detected B.parapertussis DNA PCR Not Detected C. pneumoniae DNA (PCR) Not Detected Coronavirus OC43 (PCR) Not Detected Coronavirus HKU1 (PCR) Not Detected Coronavirus 229E (PCR) Not Detected SARS-CoV-2 (PCR) Not Detected Coronavirus NL63 (PCR) Not Detected Human Metapneumovir PCR Not Detected Influenza Type A (PCR) Not Detected Influenza Type B (PCR) Not Detected M. pneumoniae (PCR) Not Detected Parainfluenza 1 (PCR) Not Detected Parainfluenza 2 (PCR) Not Detected Parainfluenza 3 (PCR) Not Detected Parainfluenza 4 (PCR) Not Detected RSV (PCR) Not Detected Entero/Rhino (PCR) Not Detected Blood Type Antibody Screen Diagnostic Findings Chest CTA 10/26/24 12:23 CT ANGIOGRAM OF THE CHEST CLINICAL HISTORY: Shortness of breath. Hypoxia. COMPARISON STUDY: Chest radiograph October 18, 2024 and chest radiograph performed earlier today. TECHNIQUE: Following the IV administration of 115 cc of Optiray 320, CT angiogram of the chest was performed from the upper abdomen to the thoracic inlet utilizing the pulmonary embolus protocol. Images are reviewed in the axial, sagittal, and coronal planes. 3-D MIPS images are created and assessed. IV contrast was administered without complication. A dose lowering technique was utilized adhering to the principles of ALARA. CT DOSE: 1113.45 mGy.cm FINDINGS: No pulmonary emboli are identified. There is no thoracic aortic dissection. There is mild dilatation of the ascending aorta measuring 4.4 cm at the level of the main pulmonary artery. There is no dissection within the ascending aorta. Opacification of the descending thoracic aorta is suboptimal. Size of the heart is normal. There is no pericardial effusion. A small hiatal hernia is present. There is no pneumothorax or pleural effusion. No consolidation to suggest pneumonia. Small nodular densities within the right middle lobe are unchanged since abdominal CT of October 08, 2024. These are probably chronic. There is no consolidation to suggest pneumonia. Water attenuation left upper pole renal lesions were shown to represent cysts on recent abdominal CT. IMPRESSION: 1. No pulmonary emboli identified. 2. No acute intrathoracic findings. 3. Mild dilatation of the ascending aorta measuring 4.4 cm at the level of the main pulmonary artery. ACT 112: Negative or not required by law. Electronically signed by: Marky Nieto M.D. 10/26/2024 1:22 PM PG Care Time/CCT Total # of Minutes Spent Total Time Spent with Patient: Total time spent is greater than 50% in coordination of care (as documented) at patient's floor/unit and/or counseling patient: Coding Level of Care Code 04793 SUB INP/OBS CARE 350MIN Diagnoses Hypoxia R09.02 Enteropathogenic Escherichia coli infection A04.0 Hypertension I10"
[2024-10-27] MEDS: MAGNESIUM SULFATE / D5W 1 GM/100 ML BAG IV SCH (12:23)
[2024-10-27 19:27] VITALS: TEMP 97.7
[2024-10-28] MEDS: LOPERAMIDE HCL 2 MG CAP PO PRN (04:35)
[2024-10-28 06:47] LABS: Hematocrit (blood only) 37.3 % (42.0-52.0); Hemoglobin 13.2 g/dl (14.0-18.0); Mean Corpuscular Hgb Conc 35.4 g/dL (32.0-36.0); Mean Corpuscular Volume 90.3 fL (80.0-100.0); Mean Platelet Volume 9.8 fL (9.4-12.4); Platelet Count 203 K/uL (130-400); RDW Coefficient of Variation 15.5 % (11.5-14.5); Red Blood Count 4.13 M/uL (4.70-6.10); White Blood Count 8.88 K/ul (4.8-10.8)
[2024-10-28 07:07] LABS: Alanine Aminotransferase 51 U/L (7-52); Albumin Globulin Ratio 1.4 (0.9-2); Albumin Level 2.9 gm/dl (3.4-5.0); Alkaline Phosphatase 50 U/L (34-104); Anion Gap 6 (3-11); Aspartate Aminotransferase 33 U/L (13-39); BUN Creatinine Ratio 18.5 (10-20); Bilirubin,Total 0.4 mg/dl (0.2-1.0); Blood Urea Nitrogen 20 mg/dl (6-23); C Reactive Protein < 0.50 mg/dl (0-0.5); Calcium 7.3 mg/dl (8.6-10.3); Carbon Dioxide 22 mmol/L (21-32); Chloride 108 mmol/L (98-107); Creatinine Clr Calc Pharmacy 65.9 ml/min; Globulin 2.1 gm/dl (2.5-4.0); Glucose 90 mg/dl (70-99(Fasting)); Magnesium 1.9 mg/dl (1.7-2.4); Potassium 3.7 mmol/L (3.5-5.1); Sodium 136 mmol/L (136-145); Uric Acid 6.5 mg/dl (2.6-7.2)
[2024-10-28 07:55] VITALS: BP 117/76; PULSE 66; RESP 18; O2SAT 96
[2024-10-28] MEDS: MAGNESIUM SULFATE / D5W 1 GM/100 ML BAG IV SCH (09:45)
[2024-10-28 16:34] LABS: Phosphorus 2.7 mg/dl (2.5-4.9)
--- NOTE | 2024-10-28 20:18 | Discharge Summary ---
Discharge Summary Date of Service October 28, 2024 Principal Dx & Hospital Course #1 = Principal Diagnosis (1) Hypoxia: Etiology of hypoxia is attributed to long COVID with patient testing positive for COVID on , 12:00pm, at [facility]. While the initial COVID infection has RESOLVED, the sequelae of transient shortness of breath (without cough, wheeze, pleurisy, or chest pain) and fatigue persist, and along with these sequelae of transient shortness of breath (without cough, wheeze, pleurisy, or chest pain) and fatigue comes transient hypoxia. While in [facility], however, no hypoxia was recorded with admission O2 saturation of 96% on room air (10/27/2024, 6:11am). Unfortunately, there is no pharmacologic intervention to mitigate the sequelae of transient shortness of breath (without cough, wheeze, pleurisy, or chest pain) and fatigue. In terms of transient hypoxia, supportive care in the form of outpatient pulmonary rehabilitation involving breathing techniques, strength training, and aerobic/yoga exercises is recommended. To this end, I have advised the patient to follow up with his PCP Dr. Regina Sheets and his SENIOR QA TESTER Dr. Jacob Ely within 5-7 days of hospital discharge in order to arrange for outpatient pulmonary rehabilitation appointment(s). Patient reports that he will comply with this recommendation. Of further note, patient underwent CTA chest (10/26/2024, 12:23pm) which was negative for acute PE and infiltrate/consolidation, which are alternative causes for shortness of breath, if not fatigue. Of further note, patient underwent TTE (10/27/2024, 6:37am) which demonstrated normal LVEF 55-60%, no regional wall motion abnormalities, grade I LV diastolic dysfunction, and 4.1 cm ascending aortic root. Patient has no stigmata on exam (e.g., pulse pressure narrowing, JVD, or pulmonary vascular congestion to suggest [id number] diastolic CHF exacerbation as an alternative cause for shortness of breath. In addition, patient continues to receive his home- scheduled metoprolol tartrate 25mg PO bid to treat his underlying HTN, which is a common cause of chronic diastolic CHF. In addition, patient was advised to undergo annual TTE or CT chest with IV contrast to evaluate for any interval changes in his 4.1 cm ascending aortic root. Patient reports that he will comply with this recommendation. (2) Enteropathogenic Escherichia coli infection: Afebrile, non-toxic abdominal exam with no complaints of nausea, vomiting, diarrhea, or abdominal/pelvic pain reported by the patient on discharge date . Hence, patient did not receive empiric antibiotic(s) while in [facility]. (3) Hypertension: Well-controlled with admission BP 104/67 (10/27/2024, 6:11am) and discharge BP 117/56 (10/28/2024, 7:54am) on home-scheduled metoprolol tartrate 25mg PO bid while in [facility]. Patient will continue with this medication on hospital discharge home on 10/28/2024. On the other hand, patient did not receive his home-scheduled olmesartan 40mg PO daily given the potential for this medication to lower his BP even more from his admission BP 104/67 (10/27/2024, 6:11am) and discharge BP 117/56 (10/28/2024, 7:54am). Patient was advised to follow up with his PCP Dr. Regina Howe within 5-7 days for repeat BP testing and to determine if he should resume his home-scheduled olmesartan 40mg PO daily. Admission HPI Per Admitting Provider Mr. Mccain is a 74-year-old male with PMH of gout, EPEC colitis, HLD, and HTN. He presented on 10/26 at the behest of his PCP for worsening العراقي and hypoxia. Patient was hypoxic at 86% on room air on arrival which was after walking across the parking lot into the doctor's office; SpO2 96% on 4L NC in the ER. He denies SOB at rest. He reports that ever since his COVID infection that lasted 1 month in 2019, his breathing has gradually gotten worse from year to year. Over the past year, it has consistently "gone down[hill]", with an acute worsening over the past several weeks. Patient does believe that being in the hospital could be contributory and in regard to physical deconditioning. He does not follow with a director private. No home pulse ox. No prior history of COPD or asthma. Patient denies smoking or tobacco use. No supplemental oxygen at baseline or CPAP at night. No sick contacts. Remote history of EPI colitis, and patient has had ongoing abdominal cramps, nausea, vomiting, and diarrhea. He also reports that he was gagging on his meal yesterday; unsure if this went down the wrong pipe. No prior history of DVT/PE. He took all his regular morning medicine today. New medications include potassium and magnesium supplementation, famotidine, loperamide, as well as azithromycin (recently finished full course). His blood pressure medications (metoprolol and olmesartan) are currently on hold but were set to be restarted tomorrow on 10/27. Patient is retired, but formally worked in a [employer] in [place], as well as a job spreading [employer]. Patient's notes he has had a hoarse/raspy voice, which is new for him over the past several weeks. Patient's vitals are stable at admission; SpO2 93% on 4L NC. ED course: NSS 500 mL IV DuoNeb 3 mL Solu-Medrol 60 mg IV ROS: Patient endorses body aches, العراقي (ongoing), nausea, diarrhea (ongoing, improving from prior), abdominal cramping, and one episode of vomiting (after a meal yesterday), Patient denies fever, chills, night-sweat, fainting, falls, headaches, rashes, tick bites, sore throat, difficulty swallowing, chest pain, chest palpitations, pleuritic CP, cough, nausea, vomiting, or burning with urination. Discharge Exam Constitutional General: Comfortable, coherent, cooperative. Wide awake and alert. Not confused, lethargic, or obtunded. Patient speaks in complete, fluent, and articulate sentences without pause, with O2 sat 96% on room air (10/28/2024, 7:54am). HEENT: Normocephalic, atraumatic. Extra-ocular muscles intact. Pupils equally round and reactive to light. No nystagmus, gaze paresis, anisocoria, miosis, mydriasis, hyphema, scleral injection, conjunctivitis, or pterygium. No otorrhea. No pharyngeal erythema, edema, or discharge. Neck: Supple, no stridor, bruit, goiter, or hepato-jugular reflux. Jugular venous pressure is estimated to be 3 cm above the sternal angle of David, which in turn, is 5 cm above the level of the right atrium; with jugular venous pressure estimated to be 8 cm, then, there is no jugular venous distention on 10/28/2024. Lymphatics: No cervical (anterior/posterior), supraclavicular, infraclavicular, axillary, epitrochlear, or inguinal adenopathy. Chest: Symmetric rise and fall with respirations. Non-tender to palpation. Lungs: Clear to auscultation and percussion. No audible expiratory wheeze, egophony, pectoriloquy, increase in tactile fremitus, or flatness/dullness to percussion at the bases. Heart: Regular rate and rhythm. S1 and S2 noted. No S3 or S4 summation gallop. No tripartite friction rub. Grade II/ early systolic murmur @ LLSB without radiation to the carotids, axilla, or back, and which remains invariant in regards to the respiratory cycle. Abdomen: Soft, non-tender, non-distended. No rebound, guarding, Godfrey's sign, or organomegaly. Bowel sounds auscultated in all 4 quadrants. Extremities: No clubbing, cyanosis, or edema in upper extremities or lower extremities bilaterally. 2+ pedal pulses bilaterally. Skin: No decubitus ulcer, exanthem, or enanthem. Genito-urinary: No urethral discharge. No pires catheter. Neurology: Alert and oriented in regards to person, place, time, and situation. DTR+ and symmetric. 5/5 motor strength in all 4 extremities, both proximally and distally. No pronator drift. No facial droop. No dysarthria. Psychiatry: No homicidal ideation. No suicidal ideation. No flat affect; smiles appropriately. Discharge Plan Discharge Items Patient Disposition: Home - Self-Care Reason For Visit: HYPOXIA Discharge Diagnosis: Long COVID Condition on Discharge: Fair Activity: Resume your previous activity Lifting: Gradually increase as tolerated Bathing: No limitations Sexual Activity: When tolerated Exercise/Sports: Gradually increase as tolerated Driving/Machine Use: No limitations Weightbearing: Full weightbearing Non-emergency contact: Primary Care Provider Call non-emergency contact if: you have any medication questions Follow-up/Referrals: Jacob Ely MD, FCCP [Physician] - Regina Hwoe MD [Primary Care Provider] - 11/04/24 10:00 am (With Sharonda Porter.) Diet: Heart Healthy Addtl Attending Provider Instructions: See your PCP Dr. Regina Howe and your SENIOR QA TESTER Dr. Jacob Ely, both within 5-7 days for outpatient pulmonary rehab (including aerobics/yoga, strength/flexiblity training, and breathing techniques to mitigate shortness of breath, fatigue, anxiety, due to long COVID). Pending Studies at Discharge: No Stand-Alone Forms: My [facility] [employer] Smoking Cessation Medications and DC Order Prescriptions: Continued bupropion HCl 150 mg tablet sustained-release 12 hr 150 mg PO BID Qty: 180 3RF allopurinol 300 mg tablet 300 mg PO DAILY Qty: 90 3RF Hold Instructions: Resume on 10/27/24. Hold off your home-scheduled allopurinol 300mg PO daily as this medication can cause dyspepsia as long as you have diarrhea. atorvastatin 20 mg tablet 20 mg PO QPM Qty: 90 3RF Hold Instructions: Resume on 10/27/24. Hold OFF atorvastatin 20mg PO qpm for as long as you have diarrhea as this medication can cause dyspepsia. levothyroxine 150 mcg tablet 150 mcg PO 6XWK Qty: 90 3RF Rx Instructions: Take 1 tab daily in AM EXCEPT SUNDAYS metoprolol tartrate 25 mg tablet 25 mg PO BID Qty: 180 3RF Hold Instructions: Resume on 10/27/24. Hold off metoprolol 25mg PO bid for as long as you have diarrhea as this medication can lower your blood pressure when you are dehydrated from diarrhea. [facility] 50 mg-15 unit- 4.5 mg-2.5 mg tablet,chewable 2 tab PO DAILY aspirin 81 mg Tablet,Delayed Release (Dr/Ec) 81 mg PO QAM cyanocobalamin (vitamin B-12) [Vitamin B-12] 1,000 mcg Tablet 1,000 mcg PO DAILY cholecalciferol (vitamin D3) [Vitamin D3] 50 mcg (2,000 unit) Tablet 50 mcg PO DAILY loperamide 2 mg Capsule 2 mg PO Q4 MDD 16 mg per day PRN (Reason: loose stool) Qty: 180 0RF famotidine [Pepcid] 40 mg tablet 40 mg PO BID Qty: 60 0RF potassium chloride 20 mEq tablet extended release 20 meq PO DAILY Qty: 30 0RF magnesium oxide 400 mg magnesium tablet 400 mg PO DAILY Qty: 30 0RF Held olmesartan 40 mg tablet 40 mg PO DAILY Qty: 90 2RF Hold Instructions: Resume on 11/03/24. Discontinued ondansetron HCl 4 mg tablet 4 mg PO Q8H PRN (Reason: Nausea And Vomiting) Discharge Orders: Discharge Order (Routine); Ordered 10/28/24 Ordered By: Jose Daniel Chaudhary Discharge Order- CHF (Routine); Ordered 10/28/24 Ordered By: Jose Daniel Chaudhary Admission Data Admit Date/Time: 10/27/24 17:07 Attending Provider: Jose Daniel Chaudhary Admit Provider: Raul Sauceda Primary Care Provider: Regina Howe. Other Providers: Melony Shah Other Interventions: Discharge Summary Assessment (RN) Last Done: 10/28/24 16:11 Hospital Stay Data Consultations 10/26/24 14:01 ED Decision to Admit Stat Diagnostic Imagining Performed 10/26/24 12:23 CT angio chest PE protocol Stat Pending Results Patient Have Any Pending Studies at Discharge: No Discharge Instructions Given to Patient (Per Discharging Provider) See your PCP Dr. Regina Howe and your SENIOR QA TESTER Dr. Jacob Ely, both within 5-7 days for outpatient pulmonary rehab (including aerobics/yoga, strength/flexiblity training, and breathing techniques to mitigate shortness of breath, fatigue, anxiety, due to long COVID). Total Time Total Time Spent Total Time Spent (In Minutes): 35 minutes. Of this time period, 19 minutes were spent in coordinating patient's discharge. Coding Level of Care Code 33684 INP/OBS DISCH >30 MIN Diagnoses Hypoxia R09.02 Enteropathogenic Escherichia coli infection A04.0 Hypertension I10
[2024-10-29 12:43] LABS: Quantiferon Nil 0.122 IU/mL; Quantiferon TB1 0.144 IU/mL; Quantiferon TB2 0.207 IU/mL
== END 2024-10-28 17:08 | disposition home or self-care (01) | DRG 206 ==
LOC: ED 10:53 → 3N 10:53 → SUATTDRO 14:51 → 3N 17:15 → SUATTDRO 10-27 17:07

== ENCOUNTER 2024-11-26 09:53 | Inpatient (IN) ==
--- NOTE | 2024-11-26 10:27 | Emergency Department Note ---
Impression & Plan Nausea vomiting and diarrhea, MINOO (acute kidney injury), Hypokalemia ED Provider Note NAME: LULY DALTON Jr AGE: 74 SEX: M : 1950 ARRIVES VIA: Walk-In INFORMANT: Patient, ED PROVIDER(S): Casey López DO CHIEF COMPLAINT: Abdominal pain HPI: The patient is a 74-year-old male who presented to the emergency department for evaluation of abdominal pain. The patient has been describing abdominal pain nausea vomiting and diarrhea which he has been experiencing over the course the last several weeks. The patient was seen in our facility once and was admitted to the facility because of multiple electrolyte abnormalities. He is been seen by gastroenterology. His workup has been ongoing. They do not know exactly why he is been having the symptoms but he was doing better until Saturday of this week. He started noticing crampy abdominal pain nausea vomiting and then multiple episodes of loose stool. 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 His gastroenterology group called him today to see how he is feeling but he had ongoing symptoms and worsening diarrhea so he was referred to the emergency department for further evaluation. ROS: See above HPI for pertinent positives & negatives. A total of 10 systems reviewed and were otherwise negative. PAST MEDICAL HISTORY: See Below PAST SURGICAL HISTORY: See Below FAMILY HISTORY: See Below SOCIAL HISTORY: See Below HOME MEDICATIONS: See Below ALLERGIES: See Below VITALS: See Below PHYSICAL EXAMINATION: GENERAL: Patient is awake alert in no acute distress patient is resting comfortably and showing no signs of anxiety EYES: The conjunctivae are clear. The pupils are round and reactive. EARS, NOSE, MOUTH AND THROAT: The nose is without any evidence of any deformity. Mucous membranes are moist. Tongue is midline. NECK: The neck is nontender and supple. RESPIRATORY: Normal respiratory effort is noted there is no evidence of wheezing rhonchi or rales CARDIOVASCULAR: Regular rate and rhythm noted there no murmurs rubs or gallops normal S1 normal S2. GASTROINTESTINAL: The abdomen is soft and mildly distended. There is diffuse tenderness to palpation but no guarding or rigidity. MUSCULOSKELETAL/EXTREMITIES: There is no evidence of gross deformity full range of motion is noted in the hips and shoulders. SKIN: Trace pedal edema was noted bilaterally. NEUROLOGIC: Patient is awake alert and oriented x3 strength is symmetric patellar reflexes are 2+ bilaterally MEDICAL DECISION MAKING: The patient is a 74-year-old male who presented to the emergency department for an evaluation of diarrhea. The patient's had GI symptoms over the course the last several weeks. He was doing better until the beginning of the week when he started having recurrence of nausea vomiting and diarrhea. The patient's had so many bowel movements that he has become dehydrated and had an acute increase in his renal function. The patient was treated with IV fluids as well as potassium replacement in the emergency department. He was reevaluated multiple times. The patient continues to have loose stools. For this reason I discussed his condition with the on-call [facility] hospitalist. They have agreed to evaluate the patient in the emergency department for further management and disposition. Triage Nursing notes reviewed. Prior medical records reviewed Vital Signs: reviewed and remarkable for initial hypotension. Differential diagnosis: Etiologies such as appendicitis, diverticulitis, obstruction, inflammatory bowel disease, renal colic, PUD, biliary pathology, pancreatitis, mesenteric ischemia, aortic pathology, infections, genitourinary, UTI, perforated viscus, as well as others were entertained. ER treatment provided: See below Diagnostics interpreted by me: ECG: EKG was obtained in the emergency department. My interpretation is normal sinus rhythm at 86 bpm. There is no ectopy. There is no acute ST segment abnormalities noted. Inferior Q waves were noted. This was compared to a tracing from October 26, 2024. No changes noted. Cardiac Monitoring: An order was placed for continuous cardiac monitoring. The monitor shows a rate of 72 bpm with sinus rhythm. Laboratory studies: As stated above and show below. Imaging studies: See below. Radiographic imaging was reviewed by myself Consultation(s): I discussed this case with CODY who is on for the [facility] hospitalist group. Past Med/Surg History Problem List (Updated 11/26/24 @ 13:27 by Casey López DO) Hypokalemia (Acute) MINOO (acute kidney injury) (Acute) Nausea vomiting and diarrhea (Acute) Hypersomnia Obesity Short of breath on exertion Pulmonary hypertension Dilated aortic root Aortic root aneurysm Hypoxia (Acute) Enteropathogenic Escherichia coli infection Hypoxia Colitis (Acute) Acute dehydration (Acute) Nausea (Acute) Gout with tophi Obesity (BMI 30.0-34.9) Hyperlipidemia Hypertension Medical History Elevated lactic acid level Hypomagnesemia Acute hypokalemia Acute hyponatremia Acute hypotension Acidosis, lactic Acute dehydration Diarrhea Diarrhea MINOO (acute kidney injury) Sepsis Bacterial enterocolitis Prediabetes Hypothyroidism Depression Hearing deficit [place] Surgical History History of wisdom tooth extraction History of bunionectomy RT FOOT History of colonoscopy Family History Son Family history of diabetes mellitus Denies family history of Ovarian cancer Prostate cancer Myocardial infarction Breast cancer Colorectal cancer Social History Smoking Status: Never smoker Second Hand Exposure: No; Do You Dip or Chew Tobacco: No; Hx Alcohol Use: Yes Alcohol type: beer Hx Substance Use: No Preferred Language: Malay Communication Ability: Effective Communication Ability Comment: Graduated from 12th grade Hearing Ability: Normal 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 How many Children do You have: 1 How many Children do You have Comment: 1 surviving son, 56 yrs old, and living with patient's granddaughter. 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 Feels Safe at Home: Yes Diet: regular caffeine: Yes Dental Care, Regularly: Yes Physical Activity Frequency: 3-4 Times per Week Seatbelt Use: always Do you think of yourself as: straight/heterosexual Assistive Devices: Cane Allergies Allergies Allergy/AdvReac Type Severity Reaction Status Date / Time No Known Allergies Allergy Verified 11/24/24 13:48 Home Meds Home Medications Medication Instructions Recorded Confirmed aspirin 81 mg tablet,delayed 81 mg PO QAM 10/10/18 11/26/24 release cholecalciferol (vitamin D3) 50 50 mcg PO DAILY 10/13/24 11/26/24 mcg (2,000 unit) tablet (Vitamin D3) cyanocobalamin (vitamin B-12) 1,000 mcg PO DAILY 10/13/24 11/26/24 1,000 mcg tablet (Vitamin B-12) vit C 50 mg-E 15 unit-zinc cit 4.5 1 tab PO DAILY 10/26/24 11/26/24 mg-lutein 2.5 mg-zeaxan chew tablet ([facility]) chlorthalidone 25 mg tablet 25 mg PO DAILY 11/26/24 11/26/24 Previous Rx's Medication Instructions Recorded bupropion HCl 150 mg tablet,12 hr 150 mg PO BID #180 ea 12/12/23 sustained-release allopurinol 300 mg tablet 300 mg PO DAILY #90 tabs 03/09/24 atorvastatin 20 mg tablet 20 mg PO QPM #90 tabs 07/31/24 levothyroxine 150 mcg tablet 150 mcg PO 6XWK #90 tabs 08/25/24 metoprolol tartrate 25 mg tablet 25 mg PO BID #180 tabs 08/25/24 olmesartan 40 mg tablet 40 mg PO DAILY #90 tabs 08/25/24 loperamide 2 mg capsule 2 mg PO Q4 PRN loose stool #180 10/19/24 caps potassium chloride 20 mEq 20 meq PO DAILY #30 tabs 10/19/24 tablet,extended release ondansetron HCl 4 mg tablet 4 mg PO Q8H PRN nausea and 11/06/24 vomiting #30 tabs pantoprazole 20 mg tablet,delayed 20 mg PO DAILY #30 tabs 11/16/24 release Results & Data (ED) Vital Signs Vital Signs - 24 hr 11/26/24 09:59 11/26/24 11:01 11/26/24 11:03 Temperature 36.6 C Temperature Source Temporal Artery Scan Pulse Rate 97 H 85 Pulse Rate [Right Finger] Respiratory Rate 18 Respiratory Effort / Characteristics Non-Labored Spontaneous Respiratory Depth Normal Respiratory Pattern Blood Pressure 95/69 L Blood Pressure [Right Arm] Blood Pressure Mean 77 Blood Pressure Mean [Right Arm] Pulse Oximetry 95 96 Oxygen Delivery Method Room Air Room Air Sepsis Recent Fever Within 48 Hours No Sepsis New/Unexplained Change in Mental Status No Sepsis Action Taken by Nursing No Action Required 11/26/24 11:35 11/26/24 12:17 Temperature Temperature Source Pulse Rate Pulse Rate [Right Finger] 78 72 Respiratory Rate 12 24 Respiratory Effort / Characteristics Non-Labored Spontaneous Non-Labored Spontaneous Respiratory Depth Normal Normal Respiratory Pattern Regular Blood Pressure Blood Pressure [Right Arm] 97/72 L 112/73 Blood Pressure Mean Blood Pressure Mean [Right Arm] 80 86 Pulse Oximetry 99 99 Oxygen Delivery Method Room Air Room Air Sepsis Recent Fever Within 48 Hours Sepsis New/Unexplained Change in Mental Status Sepsis Action Taken by Snf Medications Current Medication List: was personally reviewed by me Laboratory Data Attestation: I reviewed the patient's lab results. 11/26/24 11:32 11/26/24 10:45 Lab Results 11/26/24 11/26/24 11/26/24 Range/Units 10:45 11:32 Unknown WBC 9.43 (4.8-10.8) K/ul RBC 4.33 L (4.70-6.10) M/uL Hgb 13.4 L (14.0-18.0) g/dl Hct 39.6 L (42.0-52.0) % MCV 91.5 (80.0-100.0) fL MCH 30.9 (25.0-34.0) pg MCHC 33.8 (32.0-36.0) g/dL RDW Std Deviation 50.4 H (36.4-46.3) fL RDW Coeff of Marlee 15.2 H (11.5-14.5) % Plt Count 253 (130-400) K/uL MPV 9.6 (9.4-12.4) fL Immature Gran % (Auto) 0.4 % Neut % (Auto) 74.0 % Lymph % (Auto) 14.2 % [place] % (Auto) 9.8 % Eos % (Auto) 1.4 % Baso % (Auto) 0.2 % Neut # (Auto) 6.98 H (1.40-6.50) K/uL Lymph # (Auto) 1.34 (1.20-3.40) K/uL [place] # (Auto) 0.92 H (0.11-0.59) K/uL Eos # (Auto) 0.13 (0.00-0.50) K/uL Baso # (Auto) 0.02 (0.00-0.20) K/uL Immature Gran # (Auto) 0.04 (0.01-0.20) K/uL Sodium 133 L (136-145) mmol/L Potassium 3.3 L (3.5-5.1) mmol/L Chloride 107 (98-107) mmol/L Carbon Dioxide 15 L (21-32) mmol/L Anion Gap 11 (3-11) BUN 19 (6-23) mg/dl Creatinine 1.52 H (0.6-1.4) mg/dl Est Cr Clr Drug Dosing 44.0 ml/min eGFR 47.79 BUN/Creatinine Ratio 12.5 (10-20) Glucose 80 (70-99(Fasting)) mg/dl Calcium 8.5 L (8.6-10.3) mg/dl Magnesium 1.8 (1.7-2.4) mg/dl Total Bilirubin 0.8 (0.2-1.0) mg/dl AST 21 (13-39) U/L ALT 18 (7-52) U/L Alkaline Phosphatase 48 (34-104) U/L Troponin I High Sens 5.3 (0-20) pg/ml Total Protein 6.5 (6.0-8.3) gm/dl Albumin 3.3 L (3.4-5.0) gm/dl Globulin 3.2 (2.5-4.0) gm/dl Albumin/Globulin Ratio 1.0 (0.9-2) Lipase 96 H (11-82) U/L Urine Comment Administered Medications Discontinued Medications Sodium Chloride (Nss) 1,000 mls @ 999 mls/hr IV .Q1H1M ONE Stop: 11/26/24 11:19 Last Admin: 11/26/24 11:41 Dose: 999 mls/hr Documented By: NRThom Lactated Ringer's (Lr) 1,000 mls @ 999 mls/hr IV .Q1H1M ONE Stop: 11/26/24 12:56 Last Infusion: 11/26/24 13:24 Dose: Infused Documented By: Admin: 11/26/24 12:19 Dose: 999 mls/hr Documented By: BALDEV Potassium Chloride (K Wes / Wtr) 10 meq in 100 mls @ 100 mls/hr IV ONE ONE Stop: 11/26/24 12:55 Last Infusion: 11/26/24 13:24 Dose: Infused Documented By: Admin: 11/26/24 12:22 Dose: 100 mls/hr Documented By: FREDOThom Imaging Data Attestation: I personally reviewed and interpreted this imaging study as follows: My Impression: 1 view chest x-ray was obtained in the emergency department. My interpretation is no free air or definite infiltrate, final report below. Radiologist's Impression: Chest X-Ray 11/26/24 10:19 XR chest 1V portable CLINICAL HISTORY: weakness COMPARISON STUDY: 11/24/2024 FINDINGS: Single view portable chest is unchanged with no acute cardiopulmonary process demonstrable. No air space opacity, pleural effusion, or pneumothorax. The heart and pulmonary vascularity are unremarkable. The aorta is mildly ectatic and tortuous. IMPRESSION: Stable exam; no acute process ACT 112: Negative or not required by law. Electronically signed by: Selene Ojeda M.D. 11/26/2024 11:06 AM KUB X-Ray 11/26/24 10:19 KUB HISTORY: weakness COMPARISON STUDY: 11/24/2024 FINDINGS: Supine portable view of the abdomen demonstrates a nonspecific bowel gas pattern. Is no evidence of obstruction. Scattered gas is identified within a nondistended rectum and colon. The psoas margins are maintained. There is degenerative change in the lumbar spine at L4-5. There is no abnormal calcification identified. The properitoneal fat lines are maintained. IMPRESSION: Nonspecific abdominal findings. ACT 112: Negative or not required by law. The above report was generated using voice recognition software. It may contain grammatical, syntax or spelling errors. Electronically signed by: Selene Ojeda M.D. 11/26/2024 11:15 AM Discharge Plan Visit Data Chief Complaint: Dehydration Stated Complaint: REF BY DOC, DEHYDRATION ED Provider: Casey López Discharge Problem: Nausea vomiting and diarrhea, MINOO (acute kidney injury), Hypokalemia Patient Disposition: Being Evaluated by Hospitalist Condition: Fair Forms Stand Alone Forms: My [facility] Prescriptions Prescriptions: No Action bupropion HCl 150 mg tablet sustained-release 12 hr 150 mg PO BID Qty: 180 3RF allopurinol 300 mg tablet 300 mg PO DAILY Qty: 90 3RF Hold Instructions: Resume on 10/27/24. Hold off your home-scheduled allopurinol 300mg PO daily as this medication can cause dyspepsia as long as you have diarrhea. atorvastatin 20 mg tablet 20 mg PO QPM Qty: 90 3RF Hold Instructions: Resume on 10/27/24. Hold OFF atorvastatin 20mg PO qpm for as long as you have diarrhea as this medication can cause dyspepsia. levothyroxine 150 mcg tablet 150 mcg PO 6XWK Qty: 90 3RF Rx Instructions: Take 1 tab daily in AM EXCEPT SUNDAYS olmesartan 40 mg tablet 40 mg PO DAILY Qty: 90 2RF Hold Instructions: Resume on 11/03/24. metoprolol tartrate 25 mg tablet 25 mg PO BID Qty: 180 3RF Hold Instructions: Resume on 10/27/24. Hold off metoprolol 25mg PO bid for as long as you have diarrhea as this medication can lower your blood pressure when you are dehydrated from diarrhea. ondansetron HCl 4 mg tablet 4 mg PO Q8H PRN (Reason: nausea and vomiting) Qty: 30 0RF pantoprazole 20 mg tablet,delayed release (DR/EC) 20 mg PO DAILY Qty: 30 2RF Ocuvite Eye Health 50 mg-15 unit- 4.5 mg-2.5 mg tablet,chewable 1 tab PO DAILY aspirin 81 mg Tablet,Delayed Release (Dr/Ec) 81 mg PO QAM cyanocobalamin (vitamin B-12) [Vitamin B-12] 1,000 mcg Tablet 1,000 mcg PO DAILY cholecalciferol (vitamin D3) [Vitamin D3] 50 mcg (2,000 unit) Tablet 50 mcg PO DAILY loperamide 2 mg Capsule 2 mg PO Q4 MDD 16 mg per day PRN (Reason: loose stool) Qty: 180 0RF potassium chloride 20 mEq tablet extended release 20 meq PO DAILY Qty: 30 0RF chlorthalidone 25 mg tablet 25 mg PO DAILY Referrals Referrals: Regina Howe MD [Primary Care Provider] -
--- NOTE | 2024-11-26 11:07 | XRay Report ---
XR chest 1V portable CLINICAL HISTORY: weakness COMPARISON STUDY: 11/24/2024 FINDINGS: Single view portable chest is unchanged with no acute cardiopulmonary process demonstrable. No air space opacity, pleural effusion, or pneumothorax. The heart and pulmonary vascularity are unr emarkable. The aorta is mildly ectatic and tortuous. IMPRESSION: Stable exam; no acute process ACT 112: Negative or not required by law. Electronically signed by: Selene Ojeda M.D. 11/26/2024 11:06 AM
--- NOTE | 2024-11-26 11:18 | XRay Report ---
KUB HISTORY: weakness COMPARISON STUDY: 11/24/2024 FINDINGS: Supine portable view of the abdomen demonstrates a nonspecific bowel gas pattern. Is no merry dence of obstruction. Scattered gas is identified within a nondistended rectum and colon. The psoas m argins are maintained. There is degenerative change in the lumbar spine at L4-5. There is no abnormal calcification identified. The properitoneal fat lines are maintained. IMPRESSION: Nonspecific abdominal findings. ACT 112: Negative or not required by law. The above report was generated using voice recognition software. It may contain grammatical, syntax o r spelling errors. Electronically signed by: Selene Ojeda M.D. 11/26/2024 11:15 AM
[2024-11-26 11:32] LABS: Anion Gap 11.0 (3-11); Bilirubin,Total 0.8 mg/dl (0.2-1.0); Calcium 8.5 mg/dl (8.6-10.3); Carbon Dioxide 15.0 mmol/L (21-32); Chloride 107.0 mmol/L (98-107); Magnesium 1.8 mg/dl (1.7-2.4); Potassium 3.3 mmol/L (3.5-5.1); Sodium 133.0 mmol/L (136-145)
[2024-11-26 11:39] LABS: Alanine Aminotransferase 18.0 U/L (7-52); Albumin Globulin Ratio 1.0 (0.9-2); Alkaline Phosphatase 48.0 U/L (34-104); Blood Urea Nitrogen 19.0 mg/dl (6-23); Creatinine Clr Calc Pharmacy 44.0 ml/min; Globulin 3.2 gm/dl (2.5-4.0); Glucose 80.0 mg/dl (70-99(Fasting)); Lipase 96.0 U/L (11-82); Total Protein 6.5 gm/dl (6.0-8.3)
[2024-11-26] MEDS: SODIUM CHLORIDE 0.9% 1,000 ML IV ONE (11:41)
[2024-11-26 11:51] LABS: Hematocrit (blood only) 39.6 % (42.0-52.0); Hemoglobin 13.4 g/dl (14.0-18.0); Immature Granulocytes # (auto) 0.04 K/uL (0.01-0.20); Immature Granulocytes % (auto) 0.4 %; Mean Corpuscular Hemoglobin 30.9 pg (25.0-34.0); Mean Corpuscular Volume 91.5 fL (80.0-100.0); Platelet Count 253 K/uL (130-400); RDW Standard Deviation 50.4 fL (36.4-46.3); Red Blood Count 4.33 M/uL (4.70-6.10); White Blood Count 9.43 K/ul (4.8-10.8)
[2024-11-26] MEDS: LACTATED RINGER'S 1,000 ML IV ONE (12:19)
[2024-11-26] MEDS: POTASSIUM CHLORIDE / WTR 10 MEQ/100 ML PLCT IV ONE ×2 (12:22→15:50)
--- NOTE | 2024-11-26 13:07 | History & Physical Report ---
Date of Service November 26, 2024 Assessment & Plan (1) Nausea vomiting and diarrhea: (2) MINOO (acute kidney injury): (3) Hypokalemia: (4) Hypothyroidism: Plan This patient is a 74yo male with PMHx of EPEC colitis who presented on 11/26 for ongoing N/V/D x 1.5 months [employer]. Acute worsening that began on Thursday 11/23. # Nausea, vomiting, and diarrhea No leukocytosis; afebrile Stool calprotectin + Tissue transglutaminase IgA Ab ordered, pending C. difficile gene negative on 11/12/2024 (and patient has reported ongoing diarrhea since before this time) CT A/P consistent with nonspecific colitis; potential ileus; no transition point is seen to indicate obstruction Patient reports he has been taking Imodium 2 mg q4h (approximately 12 mg daily) at home without relief If suspected IBS, could trial bile acid sequestrant such as cholestyramine or colestipol Continue PPI IV antiemetics PRN Note: Patient requesting refill for Zofran sent to [facility] in [place] once he leaves the hospital #H/o EPEC colitis [place] hospitalization 10/13 and 10/18 for enteropathogenic E. coli infection ?Possible that patient has residual v. chronic EPEC colitis If chronic enteritis w/ EPEC+, recommend restarting azithromycin 500mg PO daily x 5 days Stool PCR/C. difficile ordered, pending Gastroenterology consult appreciated Colonoscopy planned for 11/27 Clear liquid diet for now, NPO at midnight #Hypothyroidism TSH on 11/24 severely elevated at 115 Free T4 low at 0.53 Patient has reportedly been taking his levothyroxine in the morning with pantoprazole (not on an empty stomach) Current regimen: Levothyroxine 150 mcg 6 times per week Hold home levothyroxine; unlikely it is being absorbed through GI losses Initiate levothyroxine 75 mcg IV daily #MINOO Mild; creatinine 1.52 on arrival (baseline around 1.0) Avoid nephrotoxic agents where possible Suspect prerenal MINOO in the setting of dehydration from GI losses NSS 1000 mL + LR 1000 mL given in the ED IVF maintenance with LR at 100mL/hr x 2 L Hold chlorthalidone, olmesartan #Hypokalemia Mild; K 3.3 on arrival K rider 10mEq x 2 Trend BMP Continue potassium 20mEq supplements daily #HLD Continue atorvastatin #HTN Continue metoprolol Disposition: Admit to [facility] VTE PPx: Lovenox 40 mg SQ q24h History of Present Illness Chief Complaint: Dehydration, abdominal cramping, diarrhea Primary Care Provider: Regina Howe MD Mr. Mccain is a pleasant 74-year-old male with PMH of EPEC colitis, gout, HLD, and HTN. He presented on 11/26 at the behest of his GI providers for ongoing N/V/D. Recent hospitalization for similar at [facility] from 10/26 - 10/28. Patient reports he was doing well when he left the hospital. Then on Thursday 11/23, he had acute onset of vomiting x 6 times. He reports this significantly wore him out, and while he has not vomited since, he has had nausea throughout the week. His diarrhea has been ongoing over the past month. Patient just saw gastroenterology on Friday 11/24, and had blood work and x-rays done. GI then called him on the morning of 11/26, and he reports he was feeling worse; they recommended he go to the emergency department for elevated creatinine levels. Patient has been able to tolerate fluids at home as well as his daily medications. He took his regular morning medicine today and was able to keep them down. He has had very little to eat, but is able to keep some solids down. He reports his diarrhea has been liquidy in consistency over the past 1.5 months. No blood in stool. No antibiotic use since last October. Patient has been taking Imodium every 4-5 hours to help slow the diarrhea down, but this has not been working. He has been taking Zofran at home for nausea, and does report this is working (patient requesting a refill on Zofran at the [facility] in [place] when he leaves the hospital). Normally, he does not have abdominal pain, but does have abdominal cramping that is alleviated by using the restroom. He denies prior history of IBS, Crohn's disease, ulcerative colitis, or C. difficile. Last colonoscopy in 2019. he denies smoking, tobacco use, recent alcohol use. Patient's vitals are stable at time admission. ED course: Solomon quezada 10mEq x 1 LR 1000 mL IV NSS 1000 mL IV ROS: Patient endorses intractable vomiting on 11/23 (resolved), nausea ongoing diarrhea despite imodium q4h, and abdominal cramping. Patient denies fever, chills, night-sweats, dizziness, lightheadedness, MCCORMICK, chest pain, SOB, pleuritic CP, changes in urinary habits, or numbness/tingling/cramping in the legs. Allergies Allergy/AdvReac Type Severity Reaction Status Date / Time No Known Allergies Allergy Verified 11/24/24 13:48 Home Medications Medication Instructions Recorded Confirmed Type aspirin 81 mg tablet,delayed 81 mg PO QAM 10/10/18 11/26/24 History release bupropion HCl 150 mg tablet,12 hr 150 mg PO BID #180 ea 12/12/23 11/26/24 Rx sustained-release allopurinol 300 mg tablet 300 mg PO DAILY #90 tabs 03/09/24 11/26/24 Rx atorvastatin 20 mg tablet 20 mg PO QPM #90 tabs 07/31/24 11/26/24 Rx levothyroxine 150 mcg tablet 150 mcg PO 6XWK #90 tabs 08/25/24 11/26/24 Rx metoprolol tartrate 25 mg tablet 25 mg PO BID #180 tabs 08/25/24 11/26/24 Rx olmesartan 40 mg tablet 40 mg PO DAILY #90 tabs 08/25/24 11/26/24 Rx cholecalciferol (vitamin D3) 50 50 mcg PO DAILY 10/13/24 11/26/24 History mcg (2,000 unit) tablet (Vitamin D3) cyanocobalamin (vitamin B-12) 1,000 mcg PO DAILY 10/13/24 11/26/24 History 1,000 mcg tablet (Vitamin B-12) loperamide 2 mg capsule 2 mg PO Q4 PRN loose stool #180 10/19/24 11/26/24 Rx caps potassium chloride 20 mEq 20 meq PO DAILY #30 tabs 10/19/24 11/26/24 Rx tablet,extended release vit C 50 mg-E 15 unit-zinc cit 4.5 1 tab PO DAILY 10/26/24 11/26/24 History mg-lutein 2.5 mg-zeaxan chew tablet ([facility]) ondansetron HCl 4 mg tablet 4 mg PO Q8H PRN nausea and 11/06/24 11/26/24 Rx vomiting #30 tabs pantoprazole 20 mg tablet,delayed 20 mg PO DAILY #30 tabs 11/16/24 11/26/24 Rx release chlorthalidone 25 mg tablet 25 mg PO DAILY 11/26/24 11/26/24 History Past Med/Surg History Problem List Hypothyroidism Hypokalemia (Acute) MINOO (acute kidney injury) (Acute) Nausea vomiting and diarrhea (Acute) Hypersomnia Obesity Short of breath on exertion Pulmonary hypertension Dilated aortic root Aortic root aneurysm Hypoxia (Acute) Enteropathogenic Escherichia coli infection Hypoxia Colitis (Acute) Acute dehydration (Acute) Nausea (Acute) Gout with tophi Obesity (BMI 30.0-34.9) Hyperlipidemia Hypertension Medical History Elevated lactic acid level Hypomagnesemia Acute hypokalemia Acute hyponatremia Acute hypotension Acidosis, lactic Acute dehydration Diarrhea Diarrhea MINOO (acute kidney injury) Sepsis Bacterial enterocolitis Prediabetes Depression Hearing deficit BL MCCORMICK Surgical History History of wisdom tooth extraction History of bunionectomy RT FOOT History of colonoscopy Family History Son Family history of diabetes mellitus Denies family history of Ovarian cancer Prostate cancer Myocardial infarction Breast cancer Colorectal cancer Social History Smoking Status: Never smoker Second Hand Exposure: No; Do You Dip or Chew Tobacco: No; Hx Alcohol Use: Yes Alcohol type: beer Hx Substance Use: No Preferred Language: Estonian Communication Ability: Effective Communication Ability Comment: Graduated from 12th grade Hearing Ability: Normal 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 How many Children do You have: 1 How many Children do You have Comment: 1 surviving son, 56 yrs old, and living with patient's granddaughter. 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 Feels Safe at Home: Yes Diet: regular caffeine: Yes Dental Care, Regularly: Yes Physical Activity Frequency: 3-4 Times per Week Seatbelt Use: always Do you think of yourself as: straight/heterosexual Assistive Devices: Glasses Review of Systems Review of Systems: See HPI above Physical Exam Physical Exam: General: no acute distress; pleasant affect; at bedside; non-toxic appearing; cooperative; SpO2 99% on RA HEENT: normocephalic, atraumatic; no scleral icterus; PERRLA; vision and hearing grossly intact Neck: supple; no lymphadenopathy; trachea midline Skin: warm, dry without signs of tenting; no cyanosis; no rashes, bruising, lesions, or erythema noted CV: chest wall NTP; RRR; S1/S2 normal; no murmurs/rubs/gallops; pulses intact and symmetric at radial, DP, and PT Lungs: no acute respiratory distress; symmetrical chest wall expansion; clear breath sounds across all lung palacios w/o adventitious sounds; no wheezing ABD: Soft, NTP in all 4 quadrants; BS present; no rebound/guarding; no distention Back: Negative CVA tenderness bilaterally MSK: no tics or fasciculations; no edema noted in the LEs b/l, nonerythematous Neuro: A&Ox3; normal mood and affect; fluent speech; no focal deficits; sensation intact and symmetric in the lower extremities bilaterally Results & Data Results & Data Vital Signs (Past 12 Hours) Vital Signs Temp Pulse Pulse Resp BP BP Pulse Ox 11/26/24 12:17 72 24 112/73 99 11/26/24 11:35 78 12 97/72 L 99 11/26/24 11:03 85 11/26/24 11:01 96 11/26/24 09:59 36.6 C 97 H 18 95/69 L 95 O2 Del Method 11/26/24 12:17 Room Air 11/26/24 11:35 Room Air 11/26/24 11:03 11/26/24 11:01 Room Air 11/26/24 09:59 Room Air Laboratory Results Abnormal lab results 11/26/24 11/26/24 Range/Units 10:45 11:32 RBC 4.33 L (4.70-6.10) M/uL Hgb 13.4 L (14.0-18.0) g/dl Hct 39.6 L (42.0-52.0) % RDW Std Deviation 50.4 H (36.4-46.3) fL RDW Coeff of Marlee 15.2 H (11.5-14.5) % Neut # (Auto) 6.98 H (1.40-6.50) K/uL Ritchie # (Auto) 0.92 H (0.11-0.59) K/uL Sodium 133 L (136-145) mmol/L Potassium 3.3 L (3.5-5.1) mmol/L Carbon Dioxide 15 L (21-32) mmol/L Creatinine 1.52 H (0.6-1.4) mg/dl Calcium 8.5 L (8.6-10.3) mg/dl Albumin 3.3 L (3.4-5.0) gm/dl Lipase 96 H (11-82) U/L Diagnostic Findings Chest X-Ray 11/26/24 10:19 XR chest 1V portable CLINICAL HISTORY: weakness COMPARISON STUDY: 11/24/2024 FINDINGS: Single view portable chest is unchanged with no acute cardiopulmonary process demonstrable. No air space opacity, pleural effusion, or pneumothorax. The heart and pulmonary vascularity are unremarkable. The aorta is mildly ectatic and tortuous. IMPRESSION: Stable exam; no acute process ACT 112: Negative or not required by law. Electronically signed by: Selene Ojeda M.D. 11/26/2024 11:06 AM KUB X-Ray 11/26/24 10:19 KUB HISTORY: weakness COMPARISON STUDY: 11/24/2024 FINDINGS: Supine portable view of the abdomen demonstrates a nonspecific bowel gas pattern. Is no evidence of obstruction. Scattered gas is identified within a nondistended rectum and colon. The psoas margins are maintained. There is degenerative change in the lumbar spine at L4-5. There is no abnormal calcification identified. The properitoneal fat lines are maintained. IMPRESSION: Nonspecific abdominal findings. ACT 112: Negative or not required by law. The above report was generated using voice recognition software. It may contain grammatical, syntax or spelling errors. Electronically signed by: Selene Ojeda M.D. 11/26/2024 11:15 AM ECG Additional Comments: ECG revealed sinus rhythm with PACs at 86 bpm; QTc 471 Code Status & VTE Plan Code Status Full code VTE Prophylaxis Plan VTE Prophylaxis will be ordered: Yes Supervising Physician Co-Signing Physician Notes SANGITA Supervision Note: I personally saw and examined the patient. I verified all nesbitt points and agree with SANGTIA Boone with the following exceptions and/or additions: S-this patient is a 74-year-old male with a history of recent intra genic E. coli enteritis, hypothyroidism, pulmonary hypertension, HTN, HLD, and gout, who presents with ongoing nausea and vomiting and worsening severe diarrhea that is nonbloody over the last few weeks. He has abdominal cramping with his stools. No fevers or chills, no joint pains or rashes. He has been followed with GI as an outpatient. He has been taking Zofran and Imodium without relief History and ROS otherwise reviewed as above O- Vitals reviewed Gen: [AAOx3, NAD] HEENT: [anicteric sclerae, EOMI] CBC, CMP, magnesium, LFTs, lipase, UA, reviewed ECG reviewed A/D-18-yzmi-old male here with persistent nausea/vomiting/diarrhea and abdominal cramping with electrolyte abnormalities and mild renal insufficiency, hyponatremia and hypokalemia. With recent E. coli infection. - Admit for IV fluid hydration, pain control as needed - Check CT abdomen/pelvis - Consult GI about colonoscopy and question if need for antibiotics? - Check stool studies again-perhaps has chronic E. coli infection? PG Care Time/CCT Total # of Minutes Spent Total Time Spent with Patient: Total time spent is greater than 50% in coordination of care (as documented) at patient's floor/unit and/or counseling patient: Coding [place] [address] INT INP/OBS CARE 3/75MIN Patient Type Established Medical Decision Making High Complexity Diagnoses Nausea vomiting and diarrhea R11.2; R19.7 MINOO (acute kidney injury) N17.9 Hypokalemia E87.6 Hypothyroidism E03.9
[2024-11-26 13:26] LABS: Appearance Urine Cloudy (Clear); Bacteria Urine Automated None Seen (None Seen); Cast Urine Automated >20 /lpf (0-2); Glucose Urine UA Negative (Negative); RBC Urine Automated 0-2 /hpf (0-2)
--- NOTE | 2024-11-26 14:37 | Gastrointestinal Consultation ---
Date of Consultation November 26, 2024 Assessment & Plan (1) Colitis: -Liquid diet today -Bowel prep tonight -NPO after midnight -Colonoscopy on 11/27/24 -Continue to monitor electrolytes Supervising Physician Co-Signing Physician Notes Patient seen and examined with MARTA Raymond as above Abd: Soft, NT, ND, +BS Continue current therapy and supportive care Await stool studies Proceed with colonoscopy tomorrow if no findings on stool studies. History of Present Illness Reason for Consultation: Diarrhea Attending Physician: Melony Shah MD History of Present Illness Patient is a 74 yo male who presents to the ED at the request of Lacho Chopra PA-C for further evaluation of diarrhea and concern for dehydration. Patient has been having diarrhea, abdominal discomfort, bloating, n/v since mid September 2024. He has been to the ED numerous times since then and admitted with dehydration and associated electrolyte issues. In September 2024, he had a CT scan that indicated an ascending colitis that was non-specific. He subsequently had stool studies in October that were positive for EPEC and was given Azithromycin x 5 days. He has been using Imodium numerous times daily. He reportedly is moving his bowels 10- 12 times daily at his worst. C diff testing has been unremarkable. Celiac testing was obtained on 11/24/24 and is pending. Today in the ED he has had a CT scan of the abdomen/pelvis without contrast due to renal function. Results: 1. There is a long segment of wall thickening involving the transverse colon with surrounding infiltration. There is associated mesenteric venous gas and portal venous gas. The appearance is consistent with a nonspecific colitis, and this could be on an infectious, inflammatory, or ischemic basis. Clinical correlation will be essential. Current H/H 13.4/39.6. K 3.3. Cr 1.52. Of note, he had a colonoscopy in 2018 that indicated erythematous mucosa of the ascending colon and was biopsied at that time. The biopsies indicated suspicion for ischemic colitis at that time. I am unsure what follow-up was performed at that time as he was under the care of [facility] at that time. Allergies Allergy/AdvReac Type Severity Reaction Status Date / Time No Known Allergies Allergy Verified 11/24/24 13:48 Home Medications Medication Instructions Recorded Confirmed Type aspirin 81 mg tablet,delayed 81 mg PO QAM 10/10/18 11/26/24 History release bupropion HCl 150 mg tablet,12 hr 150 mg PO BID #180 ea 12/12/23 11/26/24 Rx sustained-release allopurinol 300 mg tablet 300 mg PO DAILY #90 tabs 03/09/24 11/26/24 Rx atorvastatin 20 mg tablet 20 mg PO QPM #90 tabs 07/31/24 11/26/24 Rx levothyroxine 150 mcg tablet 150 mcg PO 6XWK #90 tabs 08/25/24 11/26/24 Rx metoprolol tartrate 25 mg tablet 25 mg PO BID #180 tabs 08/25/24 11/26/24 Rx olmesartan 40 mg tablet 40 mg PO DAILY #90 tabs 08/25/24 11/26/24 Rx cholecalciferol (vitamin D3) 50 50 mcg PO DAILY 10/13/24 11/26/24 History mcg (2,000 unit) tablet (Vitamin D3) cyanocobalamin (vitamin B-12) 1,000 mcg PO DAILY 10/13/24 11/26/24 History 1,000 mcg tablet (Vitamin B-12) loperamide 2 mg capsule 2 mg PO Q4 PRN loose stool #180 10/19/24 11/26/24 Rx caps potassium chloride 20 mEq 20 meq PO DAILY #30 tabs 10/19/24 11/26/24 Rx tablet,extended release vit C 50 mg-E 15 unit-zinc cit 4.5 1 tab PO DAILY 10/26/24 11/26/24 History mg-lutein 2.5 mg-zeaxan [facility]w tablet [facility]) ondansetron HCl 4 mg tablet 4 mg PO Q8H PRN nausea and 11/06/24 11/26/24 Rx vomiting #30 tabs pantoprazole 20 mg tablet,delayed 20 mg PO DAILY #30 tabs 11/16/24 11/26/24 Rx release chlorthalidone 25 mg tablet 25 mg PO DAILY 11/26/24 11/26/24 History Patient History Medical History Elevated lactic acid level Hypomagnesemia Acute hypokalemia Acute hyponatremia Acute hypotension Acidosis, lactic Acute dehydration Diarrhea Diarrhea MINOO (acute kidney injury) Sepsis Bacterial enterocolitis Prediabetes Depression Hearing deficit BL MCCORMICK Surgical History History of wisdom tooth extraction History of bunionectomy RT FOOT History of colonoscopy Family History Son Family history of diabetes mellitus Denies family history of Ovarian cancer Prostate cancer Myocardial infarction Breast cancer Colorectal cancer Social History Smoking Status: Never smoker Second Hand Exposure: No; Do You Dip or Chew Tobacco: No; Hx Alcohol Use: Yes Alcohol type: beer Hx Substance Use: No Preferred Language: Moldovan Communication Ability: Effective Communication Ability Comment: Graduated from 12th grade Hearing Ability: Normal 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 How many Children do You have: 1 How many Children do You have Comment: 1 surviving son, 56 yrs old, and living with patient's granddaughter. 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 Feels Safe at Home: Yes Diet: regular caffeine: Yes Dental Care, Regularly: Yes Physical Activity Frequency: 3-4 Times per Week Seatbelt Use: always Do you think of yourself as: straight/heterosexual Assistive Devices: Cane Review of Systems Constitutional: no fever and no chills Respiratory: no cough and no dyspnea Cardiovascular: no chest pain Gastrointestinal: + abdominal pain and + diarrhea/loose st ools Physical Exam Constitutional: well developed Respiratory: normal respiratory effort Cardiovascular: Rate/Rhythm: regular rate Gastrointestinal (Abdomen): normal bowel sounds, soft, nontender, no hepatosplenomegaly Psychiatric: Orientation: alert and oriented x 3 Results & Data Vital Signs (Past 12 Hours) Vital Signs Temp Pulse Pulse Resp BP BP Pulse Ox 11/26/24 12:17 72 24 112/73 99 11/26/24 11:35 78 12 97/72 L 99 11/26/24 11:03 85 11/26/24 11:01 96 11/26/24 09:59 36.6 C 97 H 18 95/69 L 95 O2 Del Method 11/26/24 12:17 Room Air 11/26/24 11:35 Room Air 11/26/24 11:03 11/26/24 11:01 Room Air 11/26/24 09:59 Room Air PG Care Time/CCT Total # of Minutes Spent Total Time Spent with Patient: Total time spent is greater than 50% in coordination of care (as documented) at patient's floor/unit and/or counseling patient: Coding Level of Care Code 12611 INT INP/OBS CARE 3/75MIN Diagnoses Colitis K52.9
[2024-11-26] MEDS: MAGNESIUM SULFATE / D5W 1 GM/100 ML BAG IV ONE (14:40)
--- NOTE | 2024-11-26 14:42 | CT Scan Report ---
CT SCAN OF THE ABDOMEN AND PELVIS WITHOUT IV CONTRAST CLINICAL HISTORY: Generalized abdominal pain. Diarrhea. COMPARISON STUDY: Abdominal CT dated 10/08/2024 TECHNIQUE: CT scan of the abdomen and pelvis is performed from the lung bases to the proximal femora. Images are reviewed in the axial, sagittal, and coronal planes. IV contrast was not administered for this examination. Note that the examination is suboptimal without IV contrast. A dose lowering techn ique was utilized adhering to the principles of ALARA. CT DOSE: 1287.67 mGy.cm FINDINGS: Lung bases: The heart is normal in size and without pericardial effusion. The lung bases are clear no ting mild bibasilar scarring/atelectasis. There is a moderate hiatal hernia. Liver: The unenhanced liver is normal in size, contour, and attenuation. There is no intrahepatic lucia iary ductal dilatation. There is portal venous gas. Gallbladder: Unremarkable. Spleen: Normal in size and attenuation. Pancreas: The unenhanced pancreas is grossly unremarkable. Adrenal glands: Unremarkable. Kidneys: The unenhanced kidneys are normal in size and without hydronephrosis. There are no renal kendall culi identified. Bilateral renal cysts measure up to 6.8 cm. Abdominal vasculature: The abdominal aorta is normal in course and caliber noting moderate atheroscle rotic calcification. Bowel: There is a long segment of wall thickening with mild pericolonic inflammation involving the tr ansverse colon. There is adjacent mesenteric venous gas. No pneumatosis intestinalis is identified. T here is no bowel obstruction. Liquid stool seen throughout the colon. There are also mildly distended and fluid-filled loops of small bowel. The appendix is well-visualized and normal. Peritoneum: There is no intraperitoneal free air or abdominal ascites. There is a fat-containing umbi lical hernia. Lymphadenopathy: None. Pelvic viscera: The prostate gland is mildly enlarged and heterogeneous. The bladder is distended, an d the wall appears thickened/trabeculated indicating a chronic outlet obstruction. There are bilatera l fat-containing groin hernias. Skeletal structures: The skeletal structures are osteopenic. There is mild lumbosacral spondylosis. A chronic superior endplate compression deformity of T12 is similar to previous. No lytic or blastic l esions are seen. IMPRESSION: 1. There is a long segment of wall thickening involving the transverse colon with surrounding infiltr ation. There is associated mesenteric venous gas and portal venous gas. The appearance is consistent with a nonspecific colitis, and this could be on an infectious, inflammatory, or ischemic basis. Clin ical correlation will be essential. 2. There is no pneumatosis intestinalis. No intraperitoneal free air is seen. 3. Liquid stool is seen throughout the colon, and there are distended and fluid-filled loops of small bowel. This could also be related to a nonspecific enterocolitis or could potentially represent ileu s. No transition point is seen to indicate obstruction. 4. Cardiomegaly and hiatal hernia. 5. Additional findings as above. ACT 112: Negative or not required by law. Electronically signed by: Dong Morocho M.D. 11/26/2024 2:40 PM
--- NOTE | 2024-11-26 14:52 | Electrocardiogram Report ---
Test Reason : Blood Pressure : */* mmHG Vent. Rate : 86 BPM Atrial Rate : 86 BPM P-R Int : 194 ms QRS Dur : 94 ms QT Int : 394 ms P-R-T Axes : 55 28 -1 degrees QTcB Int : 471 ms Sinus rhythm with Premature atrial complexes Otherwise normal ECG When compared with ECG of 26-Oct-2024 11:08, Premature atrial complexes are now Present Minimal criteria for Inferior infarct are no longer Present Confirmed by Casey Soto ([id number]) on 11/26/2024 2:52:38 PM Referred By: Lacho Chopra Confirmed By: Casey oSto
[2024-11-26] MEDS: LACTATED RINGER'S 1,000 ML IV SCH (15:50)
[2024-11-26] MEDS ORDERED: LOPERAMIDE HCL 2 MG CAP PO PRN (17:00)
[2024-11-26] MEDS: POLYETHYLENE (MIRALAX) 17 GM PACK PO ONE (17:54)
[2024-11-26 19:07] LABS: Cdiff Toxin B Gene (2yr or >) Negative Cdiff Gene (Neg)
[2024-11-26] MEDS: ONDANSETRON INJ 2 MG/ML 2 ML VIAL IV PRN (19:14)
[2024-11-26 19:38] LABS: Adenovirus F 40/41 PCR Not Detected (NotDetected); Campylobacter PCR Not Detected (NotDetected); Enteroaggregative E.coli(EAEC) Not Detected (NotDetected); Shiga-like Toxin E.coli (STEC) Not Detected (NotDetected); Vibrio species PCR Not Detected (NotDetected)
[2024-11-26] MEDS: ATORVASTATIN 20 MG TAB PO SCH (20:07)
[2024-11-26] MEDS: METOPROLOL TARTRATE 25 MG TAB PO SCH (20:07)
[2024-11-26] MEDS ORDERED: ENOXAPARIN INJ 40 MG/0.4 ML SYR SQ SCH (21:00)
[2024-11-27 08:28] LABS: Anion Gap 7.0 (3-11); Calcium 7.6 mg/dl (8.6-10.3); Carbon Dioxide 17.0 mmol/L (21-32); Chloride 111.0 mmol/L (98-107); Hematocrit (blood only) 38.6 % (42.0-52.0); Hemoglobin 12.7 g/dl (14.0-18.0); Mean Corpuscular Hemoglobin 31.9 pg (25.0-34.0); Mean Corpuscular Volume 97.0 fL (80.0-100.0); Platelet Count 218 K/uL (130-400); Potassium 3.3 mmol/L (3.5-5.1); RDW Standard Deviation 54.1 fL (36.4-46.3); Red Blood Count 3.98 M/uL (4.70-6.10); Sodium 135.0 mmol/L (136-145); White Blood Count 7.33 K/ul (4.8-10.8)
[2024-11-27 08:34] LABS: Blood Urea Nitrogen 11.0 mg/dl (6-23); Creatinine Clr Calc Pharmacy 65.9 ml/min; Glucose 90.0 mg/dl (70-99(Fasting))
--- NOTE | 2024-11-27 09:16 | History & Physical Bridge Note ---
Date of Service November 27, 2024 History & Physical Bridge Note I have examined the patient, reviewed the History & Physical and in the interval since the performance of the History & Physical I have noted the following changes of clinical significance: no changes noted Patient notes he finished his bowel prep this morning around 6 AM. He notes liquid yellow stools. No GI bleeding. No food by mouth today. Keep NPO and proceed with colonoscopy today. Supervising Physician Co-Signing Physician Notes Patient seen and examined, and agree with MARTA Raymond as above He states he has had no improvement in his symptoms Abd: Soft, NT, ND, +BS Continue current therapy and supportive care Proceed with colonoscopy today.
[2024-11-27] MEDS: ASPIRIN 81 MG ECTAB PO SCH (09:23)
[2024-11-27] MEDS: POTASSIUM CHLORIDE CRTAB 20 MEQ TABCR PO SCH (09:26)
[2024-11-27] MEDS: LEVOTHYROXINE SODIUM 75 MCG in SYRINGE 0 ML IV SCH (11:20)
[2024-11-27] MEDS: SODIUM CHLORIDE 0.9% 500 ML IV SCH (11:35)
--- NOTE | 2024-11-27 11:57 | Anesthesiology Consultation ---
Date of Service November 27, 2024 Assessment & Plan Chart Review Chart Review: Acceptable Risk for Surgery ASA ASA3 Proposed Anesthesia Anesthesia Type: MAC Risk / Benefits Reviewed With: PT / POA / Parent / Guardian and Accepts Plan History Surgery Operation Date: 11/27/24 16:55 Proposed Procedures p Colonoscopy Dr. Shiva Shannon, DO Height/Weight Height: 6 ft Weight: 90.8 kg Allergies Allergy/AdvReac Type Severity Reaction Status Date / Time No Known Allergies Allergy Verified 11/27/24 11:30 Medications Home Medications Medication Instructions Recorded Confirmed Last Taken aspirin 81 mg tablet,delayed 81 mg PO QAM 10/10/18 11/27/24 11/26/24 release bupropion HCl 150 mg tablet,12 hr 150 mg PO BID #180 ea 12/12/23 11/26/24 10/13/24 sustained-release allopurinol 300 mg tablet 300 mg PO DAILY #90 tabs 03/09/24 11/26/24 10/13/24 atorvastatin 20 mg tablet 20 mg PO QPM #90 tabs 07/31/24 11/26/24 10/12/24 levothyroxine 150 mcg tablet 150 mcg PO 6XWK #90 tabs 08/25/24 11/26/24 10/26/24 metoprolol tartrate 25 mg tablet 25 mg PO BID #180 tabs 08/25/24 11/26/24 10/26/24 olmesartan 40 mg tablet 40 mg PO DAILY #90 tabs 08/25/24 11/26/24 10/12/24 cholecalciferol (vitamin D3) 50 50 mcg PO DAILY 10/13/24 11/26/24 10/26/24 mcg (2,000 unit) tablet (Vitamin D3) cyanocobalamin (vitamin B-12) 1,000 mcg PO DAILY 10/13/24 11/26/24 10/26/24 1,000 mcg tablet (Vitamin B-12) loperamide 2 mg capsule 2 mg PO Q4 PRN loose stool #180 10/19/24 11/26/24 Unknown caps potassium chloride 20 mEq 20 meq PO DAILY #30 tabs 10/19/24 11/26/24 10/26/24 tablet,extended release vit C 50 mg-E 15 unit-zinc cit 4.5 1 tab PO DAILY 10/26/24 11/26/2425 mg-lutein 2.5 mg-zeaxan chew tablet ([facility]) ondansetron HCl 4 mg tablet 4 mg PO Q8H PRN nausea and 11/06/24 11/26/24 Unknown vomiting #30 tabs pantoprazole 20 mg tablet,delayed 20 mg PO DAILY #30 tabs 11/16/24 11/26/24 Unknown release chlorthalidone 25 mg tablet 25 mg PO DAILY 11/26/24 11/26/24 Unknown Active Medications Generic Name Dose Route Start Last Admin Trade Name Ericka PRN Reason Stop Dose Admin Allopurinol 300 mg 11/27/24 09:00 11/27/24 09:23 Allopurinol 300 Mg Tab PO 12/27/24 08:59 300 mg DAILY CARINE Administration Aspirin 81 mg 11/27/24 09:00 11/27/24 09:23 Aspirin 81 Mg Ectab PO 12/27/24 08:59 81 mg QAM CARINE Administration Atorvastatin Calcium 20 mg 11/26/24 21:00 11/26/24 20:07 Atorvastatin 20 Mg Tab PO 12/26/24 20:59 20 mg QPM CARINE Administration Bupropion HCl 150 mg 11/26/24 21:00 11/27/24 09:23 Bupropion Sr 150 Mg Tabcr PO 12/26/24 20:59 150 mg BID CARINE Administration Lactated Ringer's 1,000 mls @ 100 mls/hr 11/26/24 14:30 11/27/24 09:25 Lr IV 11/27/24 20:29 100 mls/hr .Q10H CARINE Administration Levothyroxine Sodium 75 mcg/ 3.75 mls @ 2 mls/min 11/27/24 09:00 11/27/24 11:20 Syringe IV 12/03/24 08:59 Not Given DAILY@0900 CARINE Protocol Sodium Chloride 500 mls @ 15 mls/hr 11/27/24 07:30 11/27/24 11:35 Nss IV 11/28/24 07:29 Infused .Q24H CARINE Infusion Metoprolol Tartrate 25 mg 11/26/24 21:00 11/27/24 09:23 Metoprolol Tartrate 25 Mg Tab PO 12/26/24 20:59 25 mg BID CARINE Administration Ondansetron HCl 4 mg 11/26/24 17:00 11/26/24 19:14 Ondansetron Inj 2 Mg/Ml 2 Ml Vial IV 12/26/24 16:59 4 mg Q6H PRN Administration Nausea Pantoprazole Sodium 40 mg 11/27/24 09:00 11/27/24 09:24 Pantoprazole 40 Mg Tab PO 12/27/24 08:59 40 mg DAILY CARINE Administration Potassium Chloride 20 meq 11/27/24 09:00 11/27/24 09:26 Potassium Chloride Crtab 20 Meq Tabcr PO 12/27/24 08:59 20 meq DAILY CARINE Administration NPO Date Last Intake of Fluids: 11/27/24 Time Last Intake of Fluids: 09:30 Date Last Intake of Solids: 11/26/24 Time Last Intake of Solids: 07:30 Past Medical History Medical History Elevated lactic acid level Hypomagnesemia Acute hypokalemia Acute hyponatremia Acute hypotension Acidosis, lactic Acute dehydration Diarrhea Diarrhea MINOO (acute kidney injury) Sepsis Bacterial enterocolitis Prediabetes Depression Hearing deficit BL [place] Exercise / Class Metabolic Activity III < 4 Walking/Shop/Light housework Past Family History Family History Son Family history of diabetes mellitus Denies family history of Ovarian cancer Prostate cancer Myocardial infarction Breast cancer Colorectal cancer Past Surgical History Surgical History History of wisdom tooth extraction History of bunionectomy RT FOOT History of colonoscopy Past Anesthesia History No Hx of Anesthesia Complications and No Family Hx of Anesthesia Complications History of PONV No Hx of PONV and No Hx of Motion Sickness Social History Smoking Status: Never smoker Do You Dip or Chew Tobacco: No Hx Alcohol Use: Yes Alcohol type: beer alcohol intake frequency: holidays/special occasions only Hx Substance Use: No substance use type: does not use Physical Exam Vital Signs Last Vital Signs Temp 36.4 C L 11/27/24 11:31 Pulse 54 L 11/27/24 11:31 Resp 18 11/27/24 11:31 BP 110/61 11/27/24 11:31 Pulse Ox 99 11/27/24 11:31 O2 Del Method Room Air 11/27/24 11:31 Constitutional no acute distress ENMT Mouth: + chipped teeth; no TMJ abnormality Thyromental Distance: > or= 3.5 Finger Breadths Mallampati Class: III Neck normal visual inspection Respiratory normal respiratory effort Auscultation: lungs clear to auscultation bilaterally Cardiovascular Rate/Rhythm: regular rate and regular rhythm Neurologic moves all extremities Psychiatric Orientation: alert and oriented x 3 Testing Laboratory Results 11/27/24 07:44 11/27/24 07:44 Urine Color Yellow 11/26/24 Unknown Urine Appearance Cloudy (Clear) A 11/26/24 Unknown Urine pH 5.5 (4.5-7.5) 11/26/24 Unknown Ur Specific [place] 1.018 (1.000-1.030) 11/26/24 Unknown Urine Protein 1+ (Negative) H 11/26/24 Unknown Urine Glucose (UA) Negative (Negative) 11/26/24 Unknown Urine Ketones Trace (Negative) H 11/26/24 Unknown Urine Nitrite Negative (Negative) 11/26/24 Unknown Ur Leukocyte Esterase 1+ (Negative) H 11/26/24 Unknown Urine WBC (Auto) 6-10 /hpf (0-5) H 11/26/24 Unknown Urine RBC (Auto) 0-2 /hpf (0-2) 11/26/24 Unknown U Hyaline Cast (Auto) >20 /lpf (0-2) H 11/26/24 Unknown U Epithel Cells (Auto) 6-10 /hpf (0-2) H 11/26/24 Unknown Urine Bacteria (Auto) None Seen (None Seen) 11/26/24 Unknown Electrocardiogram Date: 11/26/24 Findings: + NSR @ (PACs) Chest X-Ray Date: 11/26/24 Findings: + NAD Echocardiogram Date: 10/27/24 EF: 55% LV Function: normal Mild Pulmonary HTN, dilated aortic root to 4.5cm
--- NOTE | 2024-11-27 13:59 | GI REPORT ---
[facility] Patient: SHA MAURICIO : 1950 Sex at : Male Age: 74 Years Procedure: Colonoscopy Date: 11/27/2024 Attending Physician: Howie Shannon DO Referring MD: Melony Shah Md Indications: - Chronic diarrhea Medications: - Monitored Anesthesia Care Complications: - No immediate complications. Estimated Blood Loss: - Estimated blood loss: None. Procedure: - Prior to the procedure, a History and Physical was performed, and patient medications and allergies were reviewed. The patient's tolerance of previous anesthesia was also reviewed. The risks and benefits of the procedure and the sedation options and risks were discussed with the patient. All questions were answered, and informed consent was obtained. Prior Anticoagulants: The patient has taken no anticoagulant or antiplatelet agents except for aspirin, last dose was 1 day prior to procedure. ASA Grade Assessment: III - A patient with severe systemic disease. After reviewing the risks and benefits, the patient was deemed in satisfactory condition to undergo the procedure. - The Adult Colonoscope was introduced through the anus and advanced to the terminal ileum, with identification of the appendiceal orifice and ileocecal valve. - The colonoscopy was performed without difficulty. - The patient tolerated the procedure well. - The quality of the bowel preparation was good. - The terminal ileum, ileocecal valve, appendiceal orifice, and rectum were photographed. Findings: - The perianal examination was normal. - A localized area of severely erythematous, thickened folds of the and ulcerated mucosa was found in the cecum. Biopsies were taken with a cold forceps for histology. - A diffuse area of moderately erythematous and ulcerated mucosa was found in the rectum, in the sigmoid colon, in the descending colon, in the transverse colon and in the ascending colon. Biopsies were taken with a cold forceps for histology. - Internal hemorrhoids were found during retroflexion. The hemorrhoids were small. Impression: - Erythematous, thickened folds of the and ulcerated mucosa in the cecum. Biopsied. - Erythematous and ulcerated mucosa in the rectum, in the sigmoid colon, in the descending colon, in the transverse colon and in the ascending colon. Biopsied. - Internal hemorrhoids. Recommendation: - Return patient to [facility] for ongoing care. - Resume previous diet. - Continue present medications. - Repeat colonoscopy date to be determined after pending pathology results are reviewed for surveillance based on pathology results. - Return to referring physician as previously scheduled. - Patient has a contact number available for emergencies. The signs and symptoms of potential delayed complications were discussed with the patient. Return to normal activities tomorrow. Written discharge instructions were provided to the patient. Procedure Code(s): - 88864, Colonoscopy, flexible; with biopsy, single or multiple Diagnosis Code(s): - K52.9, Noninfective gastroenteritis and colitis, unspecified - K63.89, Other specified diseases of intestine - K63.3, Ulcer of intestine - K62.89, Other specified diseases of anus and rectum - K62.6, Ulcer of anus and rectum - K64.8, Other hemorrhoids CPT(R) - 2023 copyright [employer]. All Rights Reserved. The CPT codes, CCI edits and ICD codes generated are intended as suggestions and were generated based on input data. These codes are preliminary and upon multimedia teacher review may be revised to meet current compliance and payer requirements. The provider is responsible for the final determination of appropriate codes, and modifiers. Dr. Howie Shannon, DO This document has been electronically signed. Note Initiated:11/27/2024 Note Completed:11/27/2024 1:57 PM [email or web address]\[email or web address]\[id number]
--- NOTE | 2024-11-27 14:27 | Anesthesiology Progress Note ---
Date of Service November 27, 2024 Anesthesia Post Procedure Vital Signs Vital Signs: Temp Pulse Pulse Resp BP BP Pulse Ox 11/27/24 14:24 59 L 16 110/64 99 11/27/24 14:10 62 16 105/60 100 11/27/24 13:55 60 16 92/48 L 100 11/27/24 11:31 36.4 C L 54 L 18 110/61 99 11/27/24 07:58 36.5 C 58 L 16 110/65 97 11/26/24 19:35 36.4 C L 71 16 119/77 97 11/26/24 17:05 36.5 C 64 14 126/78 99 11/26/24 17:01 36.5 C 64 16 126/78 99 11/26/24 16:19 68 18 126/76 98 11/26/24 15:48 66 16 122/78 98 11/26/24 14:38 62 16 109/73 100 O2 Del Method 11/27/24 14:24 Room Air 11/27/24 14:10 Room Air 11/27/24 13:55 Room Air 11/27/24 11:31 Room Air 11/27/24 07:58 Room Air 11/26/24 19:35 Room Air 11/26/24 17:05 Room Air 11/26/24 17:01 Room Air 11/26/24 16:19 Room Air 11/26/24 15:48 Room Air 11/26/24 14:38 Room Air Transfer of Care Handoff Completed per policy Notes Mental Status: alert / awake / arousable Patient Amnestic to Procedure: Yes Nausea / Vomiting: adequately controlled Pain: adequately controlled Airway Patency, RR, SpO2: stable & adequate BP & HR: stable & adequate Hydration State: stable & adequate Anesthetic Complications: no major complications apparent and Pt Satisfied with anesthetic care
[2024-11-27] MEDS: LIDOCAINE 2% 2 ML VIAL/AMP(20MG/ML) INFIL ONE (14:28)
[2024-11-27] MEDS: PROPOFOL IV EMULSION 10 MG/ML 20 ML VIAL IV ONE (14:28)
[2024-11-27] MEDS: POTASSIUM CHLORIDE / WTR 10 MEQ/100 ML PLCT IV SCH (14:56)
[2024-11-27] MEDS: CALCIUM GLUCONATE 1,000 MG/60 ML BAG IV STA (14:56)
--- NOTE | 2024-11-27 17:16 | Hospitalist Progress Note ---
Date of Service November 27, 2024 Assessment & Plan (1) Colitis: (2) Nausea vomiting and diarrhea: (3) Hypokalemia: (4) Hypothyroidism: Plan This patient is a 74yo male with PMHx of recent EPEC colitis in 10/2024, hypothyroidism, pulm HTN, HTN, HLD, gout who presented on 11/26 for ongoing N/V/D with abdominal cramping x 1.5 months [employer]. He had acute worsening of his symptoms that began on Thursday 11/23. #Colitis/Nausea, vomiting, and diarrhea-no evidence of sepsis. CT abdomen/pelvis without contrast shows transverse colitis. Colonoscopy on 11/27 shows diffuse ulcerations and colitis throughout colon. Stool PCR and C. difficile negative. Fecal leukocytes positive on outpatient labs, Campylobacter and Salmonella/Shigella recently negative, stool calprotectin pending. GI suspects ulcerative colitis versus ischemic colitis - Continue to replace electrolytes but can discontinue IV fluids - Antiemetics and can start Lomotil for diarrhea now that stool cultures negative - Check CT angiogram of the abdomen/pelvis given possibility of ischemia now aretha t creatinine is improved -Advance diet to low fiber after colonoscopy -Continue home PPI #Hypothyroidism-TSH on 11/24 severely elevated at 115 and had been normal 2 months prior. Possibly due to poor absorption of his oral levothyroxine as he does take it with pantoprazole but also due to his significant GI issues. - Continue with replacement of levothyroxine IV -Follow TSH in 2 weeks #MINOO-Mild; creatinine 1.52 on arrival (baseline around 1.0) and now back to 1.08 after IV fluid resuscitation. Suspect prerenal MINOO in the setting of dehydra tion from GI losses. -Follow BMP in the morning - Okay to discontinue IV fluids as he is now tolerating low fiber diet -Continue to hold chlorthalidone, olmesartan #Hypokalemia/hypocalcemia-Mild, ongoing due to GI losses and poor p.o. intake. Calcium levels low -Give another K rider 10mEq x 2 -Trend BMP -Continue potassium 20mEq supplements daily - Give calcium gluconate 1000 mg IV x 1 #HLD Continue atorvastatin #HTN-BPs are controlled -Continue metoprolol, aspirin - Hold home chlorthalidone, olmesartan #Anxiety disorder-continue home bupropion #Gout-no acute issues - Continue allopurinol DVT prophylaxis-Lovenox can now be restarted now status post colonoscopy Disposition-continued stay Admission and Anticipated Discharge Date Admission Date: November 26, 2024 Subjective Pt had colonoscopy today. Feels well now, no abd pain, no diarrhea since bowel prep completed. I discussed his care with GI Physical Exam Constitutional: WD/WN, vitals as above Respiratory: normal respiratory effort, lungs clear to auscultation Cardiovascular: RRR, no murmur, no edema Gastrointestinal (Abdomen): normal bowel sounds, soft, nontender, no hepatosplenomegaly Psychiatric: A+Ox3, euthymic affect Results & Data Results & Data Vital Signs (Past 12 Hours) Vital Signs Temp Pulse Pulse Resp BP BP Pulse Ox 11/27/24 15:13 36.4 C L 55 L 16 126/72 100 11/27/24 14:24 59 L 16 110/64 99 11/27/24 14:10 62 16 105/60 100 11/27/24 13:55 60 16 92/48 L 100 11/27/24 11:31 36.4 C L 54 L 18 110/61 99 11/27/24 07:58 36.5 C 58 L 16 110/65 97 O2 Del Method 11/27/24 15:13 Room Air 11/27/24 14:24 Room Air 11/27/24 14:10 Room Air 11/27/24 13:55 Room Air 11/27/24 11:31 Room Air 11/27/24 07:58 Room Air Laboratory Results CBC, BMP, Stool PCR, C. diff reviewed PG Care Time/CCT Total # of Minutes Spent Total Time Spent with Patient: Total time spent is greater than 50% in coordination of care (as documented) at patient's floor/unit and/or counseling patient: Coding Level of Care Code 15060 SUB INP/OBS CARE 3/50MIN Diagnoses Colitis K52.9 Nausea vomiting and diarrhea R11.2; R19.7 Hypokalemia E87.6 Hypothyroidism E03.9
[2024-11-27] MEDS: OPTIRAY 320 125ml IV ONE (19:28)
--- NOTE | 2024-11-27 20:22 | CT Scan Report ---
CT ABDOMEN and PELVIS with INTRAVENOUS CONTRAST HISTORY: Abdominal pain TECHNIQUE: CT abdomen and pelvis with contrast. IV CONTRAST: 100 mL of OMNIPAQUE 300 ENTERIC CONTRAST: Not Given COMPARISON: None FINDINGS: LOWER CHEST: Cardiomegaly. Coronary and valvular calcifications of the heart LIVER: No focal lesion identified. GALLBLADDER/BILIARY: Unremarkable gallbladder. No abnormal biliary dilatation. SPLEEN: Unremarkable. PANCREAS: Unremarkable. ADRENALS: Unremarkable. KIDNEYS: Cortical and parapelvic cysts. No stones or hydronephrosis identified. PERITONEUM/RETROPERITONEUM. No lymphadenopathy by size criteria. No aortic aneurysm. Moderate atherosclerosis. The celiac trunk and SMA are largely patent. There are stenoses at the origins of the renal arteries and the KANWAL. GASTROINTESTINAL: No obstruction. Small hiatal hernia. There is gastric wall thickening. Multiple loops of small bowel demonstrate inflammatory changes with wall thickening and mild fluid filling. Normal appendix is identified. REPRODUCTIVE: Normal-sized prostate gland with tiny calcifications. URINARY BLADDER: Unremarkable ABDOMINAL WALL: Small fat-containing inguinal hernias. BONES: No acute findings. IMPRESSION: Gastroenteritis with no specific findings of mesenteric ischemia. The celiac trunk and the SMA are largely patent. Mild stenosis at the origin of the KANWAL. Small hiatal hernia. Normal appendix Electronically signed by Andrew Matthews 11-27-2024 8:21 PM
[2024-11-27] MEDS: CHOLESTYRAMINE LIGHT 4 GM PKT PO SCH (23:31)
[2024-11-28 07:27] LABS: Hematocrit (blood only) 38.3 % (42.0-52.0); Hemoglobin 13.1 g/dl (14.0-18.0); Immature Granulocytes # (auto) 0.05 K/uL (0.01-0.20); Immature Granulocytes % (auto) 0.5 %; Mean Corpuscular Hemoglobin 31.6 pg (25.0-34.0); Mean Corpuscular Volume 92.5 fL (80.0-100.0); Platelet Count 261 K/uL (130-400); RDW Standard Deviation 50.9 fL (36.4-46.3); Red Blood Count 4.14 M/uL (4.70-6.10); White Blood Count 9.54 K/ul (4.8-10.8)
[2024-11-28 07:41] LABS: Anion Gap 6.0 (3-11); Blood Urea Nitrogen 8.0 mg/dl (6-23); Calcium 8.0 mg/dl (8.6-10.3); Carbon Dioxide 19.0 mmol/L (21-32); Chloride 110.0 mmol/L (98-107); Creatinine Clr Calc Pharmacy 64.1 ml/min; Glucose 89.0 mg/dl (70-99(Fasting)); Magnesium 1.7 mg/dl (1.7-2.4); Potassium 3.4 mmol/L (3.5-5.1); Sodium 135.0 mmol/L (136-145)
--- NOTE | 2024-11-28 08:22 | Gastroenterology Progress Note ---
Date of Service November 28, 2024 Assessment & Plan (1) Nausea vomiting and diarrhea: Plan: Still not clear on etiology of diarrhea. Waiting path results. Not absolutely necessary to keep in hospital waiting on path report as long as patient can manage diarrhea at home. Admission and Anticipated Discharge Date Admission Date: November 26, 2024 Subjective Feeling pretty well. Still with diarrhea. "two stools over night". No pain, no bleeding Physical Exam Physical Exam: He looks well Constitutional: WD/WN, vitals as above Results & Data Vital Signs (Past 12 Hours) Vital Signs Temp Pulse Resp BP Pulse Ox O2 Del Method 11/28/24 07:37 36.4 C L 58 L 15 118/70 98 Room Air 11/27/24 20:26 Room Air
--- NOTE | 2024-11-28 08:31 | Hospitalist Progress Note ---
Date of Service November 28, 2024 Assessment & Plan (1) Colitis: (2) Nausea vomiting and diarrhea: (3) Hypokalemia: (4) Hypothyroidism: Plan This patient is a 74yo male with PMHx of recent EPEC colitis in 10/2024, hypothyroidism, pulm HTN, HTN, HLD, gout who presented on 11/26 for ongoing N/V/D with abdominal cramping x 1.5 months [employer]. He had acute worsening of his symptoms that began on Thursday 11/23.He still has ongoing loose stools. #Colitis/Nausea, vomiting, and diarrhea-no evidence of sepsis.CTA shows Gastroenteritis with no specific findings of mesenteric ischemia. Stool calprotectin pending. GI says still no clear etiology of diarrhea but can go home if can manage loose stools. -Ordered Iron profile, Ferritin, Folic acid, B12, Vit.D for tomorrow given normocytic anema. - Continue to replace electrolytes. - Continue antiemetics and Lomotil for diarrhea. Can increase lomotil dose as tolerated. -added cholestyramine -Encourages oral fluids and diet. -Continue home PPI. #Hypothyroidism-TSH on 11/24 severely elevated at 115 and had been normal 2 months prior. Possibly due to poor absorption of his oral levothyroxine as he does take it with pantoprazole but also due to his significant GI issues. - Continue with replacement of levothyroxine IV -Follow TSH in 2 weeks #MINOO-Mild; creatinine 1.52 on arrival (baseline around 1.0) and now back to 1.11 after IV fluid resuscitation. Suspect prerenal MINOO in the setting of dehydration from GI losses. -Follow BMP in the morning. -Continue to hold chlorthalidone, olmesartan. #Non AG metabolic acidosis-from GI losses -control diarrhea -consider adding on NaHCO3 tabs if worsening -follow BMP #Hypokalemia/hypocalcemia-Mild, ongoing due to GI losses and poor p.o. intake. Calcium levels is 8. -Trend CMP. -Continue potassium 20mEq supplements daily - Give calcium gluconate 1000 mg IV x 1 -check Vit D level #HLD Continue atorvastatin #HTN-BPs are controlled -Continue metoprolol, aspirin - Hold home chlorthalidone, olmesartan #Anxiety disorder-continue home bupropion #Gout-no acute issues - Continue allopurinol DVT prophylaxis- Lovenox to be continued. Disposition-continued stay Admission and Anticipated Discharge Date Admission Date: November 26, 2024 Supervising Physician Co-Signing Physician Notes I personally examined the patient and verified all nesbitt points of history and exam, discussed case, and agree with decision making with Dr. Galvan with the following additions/exceptions: S-pt having 5 loose stools since the AM, watery, nonbloody and now with nausea requiring zofran again. Does not feel ready to go home O- Vitals Reviewed Gen: [AAOx3, NAD] HEENT: [anicteric sclerae, EOMI] CV: [RRR no mgr nl S1S2] Pulm: [CTAB no wcr] Abd: [+BS soft NT ND no masses or hernias] Ext: [no edema] Skin: [no rashes, warm/dry] CBC, CMP reviewed A/P: This patient is a 74yo male with PMHx of recent EPEC colitis in 10/2024, hypothyroidism, pulm HTN, HTN, HLD, gout who presented on 11/26 for ongoing N/V/D with abdominal cramping x 1.5 months [employer]. He had acute worsening of his symptoms that began on Thursday 11/23. Here with colitis and profound hypothyroidism, ongoing Nausea and diarrhea -continue current supportive care, awaiting path results from colonoscopy, may need steroids if IBD -repace lytes as needed -Lomotil trial and cholestyramine trial Subjective Patient had 3 loose stools yesterday night. He refused to take the medication diphenoxylate which was prescribed PRN. Patient was not comfortable going home because of his ongoing diarrhea. No H/o nausea, vomiting, blood in stool, bleeding from any other sites. Physical Exam Constitutional: WD/WN, vitals as above Respiratory: normal respiratory effort, lungs clear to auscultation Cardiovascular: RRR, no murmur, no edema Gastrointestinal (Abdomen): normal bowel sounds, soft, nontender, no hepatosplenomegaly Psychiatric: A+Ox3, euthymic affect Results & Data Results & Data Vital Signs (Past 12 Hours) Vital Signs Temp Pulse Resp BP Pulse Ox O2 Del Method 11/28/24 07:37 36.4 C L 58 L 15 118/70 98 Room Air Laboratory Results CTA, CBC, CMP is reviewed.
[2024-11-28] MEDS: ENOXAPARIN INJ 40 MG/0.4 ML SYR SQ SCH (09:02)
[2024-11-28] MEDS: DIPHENOXYLATE/ATROPINE 2.5/0.025MG TAB PO PRN (13:33)
--- NOTE | 2024-11-28 15:53 | Billing Data ---
Date of Service November 28, 2024 Coding Level of Care Code 14197 SUB INP/OBS CARE
[2024-11-28] MEDS: POTASSIUM CHLORIDE CRTAB 20 MEQ TABCR PO STA (19:57)
[2024-11-29 06:52] LABS: Hematocrit (blood only) 40.8 % (42.0-52.0); Hemoglobin 13.5 g/dl (14.0-18.0); Mean Corpuscular Hemoglobin 30.8 pg (25.0-34.0); Mean Corpuscular Volume 93.2 fL (80.0-100.0); Platelet Count 260 K/uL (130-400); RDW Standard Deviation 51.8 fL (36.4-46.3); Red Blood Count 4.38 M/uL (4.70-6.10); White Blood Count 8.43 K/ul (4.8-10.8)
[2024-11-29 07:33] LABS: Alanine Aminotransferase 18.0 U/L (7-52); Albumin Globulin Ratio 1.3 (0.9-2); Alkaline Phosphatase 47.0 U/L (34-104); Anion Gap 6.0 (3-11); Bilirubin,Total 0.5 mg/dl (0.2-1.0); Blood Urea Nitrogen 5.0 mg/dl (6-23); Calcium 8.1 mg/dl (8.6-10.3); Carbon Dioxide 19.0 mmol/L (21-32); Chloride 111.0 mmol/L (98-107); Creatinine Clr Calc Pharmacy 66.5 ml/min; Globulin 2.5 gm/dl (2.5-4.0); Glucose 93.0 mg/dl (70-99(Fasting)); Iron 35.0 mcg/dl (35-175); Magnesium 1.5 mg/dl (1.7-2.4); Potassium 3.4 mmol/L (3.5-5.1); Sodium 136.0 mmol/L (136-145); Total Iron Binding Cap Calc 255.0 mcg/dl (250-450); Total Protein 5.8 gm/dl (6.0-8.3); Transferrin 182.0 mg/dl (200-360); Transferrin (FE) Percent Satur 14.0 % (20-50)
[2024-11-29 07:51] LABS: Ferritin 176.2 ng/ml (8-388)
[2024-11-29 07:56] LABS: Folate (Folic Acid),Ser orPlas 8.53 ng/ml (>5.38)
[2024-11-29 07:57] LABS: Vitamin B12 438.0 pg/ml (180-914)
[2024-11-29] MEDS: POTASSIUM CHLORIDE CRTAB 20 MEQ TABCR PO SCH (08:57)
[2024-11-29] MEDS: DIPHENOXYLATE/ATROPINE 2.5/0.025MG TAB PO SCH (08:57)
[2024-11-29] MEDS: MAGNESIUM SULFATE / D5W 1 GM/100 ML BAG IV SCH (09:00)
--- NOTE | 2024-11-29 11:39 | Hospitalist Progress Note ---
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 He had acute worsening of his symptoms that began on Thursday 11/23. His loose stools are improved since yesterday. #Colitis/Nausea, vomiting, and diarrhea-no evidence of sepsis.CTA shows Gastroenteritis with no specific findings of mesenteric ischemia. Stool calprotectin pending. Had colonoscopy this admission with ulcerations throughout the colon-biopsies taken and are pending. GI says still no clear etiology of diarrhea but can go home if can manage loose stools. - Ordered CBC. - Iron is 35, Ferritin is 176.2, Transferrin 182, transferrin saturation- 14 which shows possibility of Anemia of Chronic Disease. - Changed Lomotil PRN to BID. - Continue cholestyramine -Encouraged oral fluids and diet. -Continue home PPI. -Awaiting pathology results from colonoscopy to determine if IBD and need for steroids #Hypothyroidism-TSH on 11/24 severely elevated at 115 and had been normal 2 months prior. Possibly due to poor absorption of his oral levothyroxine as he does take it with pantoprazole but also due to his significant GI issues. - Continue with replacement of levothyroxine IV -Ordered TSH for tomorrow. #MINOO-Mild; creatinine 1.52 on arrival (baseline around 1.0) and now back to 1.07. Suspect prerenal MINOO in the setting of dehydration from GI losses. -Follow BMP in the morning. -Continue to hold chlorthalidone, olmesartan. #Non AG metabolic acidosis-from GI losses -control diarrhea -consider adding on NaHCO3 tabs if worsening -follow BMP #Hypokalemia/hypocalcemia/hypomagnesemia-Mild, ongoing due to GI losses and poor p.o. intake. Calcium levels is 8.5 corrected for low albumin. Potassium remains low at 3.4 despite replacement. Magnesium low at 1.5 -Trend CMP. -Ordered Magnesium sulfate 1gm IV x 1 -Ordered potassium Ellix 20 mEq BID. #HLD Continue atorvastatin #HTN-BPs are controlled -Continue metoprolol, aspirin - Hold home chlorthalidone, olmesartan #Anxiety disorder-continue home bupropion #Gout-no acute issues - Continue allopurinol DVT prophylaxis- Lovenox to be continued. Disposition-continued stay Admission and Anticipated Discharge Date Admission Date: November 26, 2024 Supervising Physician Co-Signing Physician Notes I personally examined the patient and verified all nesbitt points of history and exam, discussed case, and agree with decision making with Dr. Galvan with the following additions/exceptions: S-patient reports finally having some improvement with fewer bowel movements and the seem to start to be formed today no abdominal pain and no nausea. He seems to have better p.o. 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 He had acute worsening of his symptoms that began on Thursday 11/23. Here with colitis and profound hypothyroidism, ongoing Nausea and profuse diarrhea-seems to be starting to improve with addition of cholestyramine and Lomotil. Still with some dehydration and electrolyte abnormalities but remains off maintenance IV fluids -continue current supportive care, awaiting path results from colonoscopy, may need steroids if IBD -Continue to replace electrolytes as needed - Continue Lomotil and make scheduled, continue scheduled cholestyramine which seems to be helping - Continue IV levothyroxine replacement for TSH of 115 and follow TSH level again in the morning - Possible discharge to home on 11/30 if continues to improve Subjective Patient has reduced loose stools and consistency of stool is better then yesterday. He had 2 loose stools yesterday night . He felt nauseous yesterday and he doesn't like having his potassium pill because its harder to swallow.Patient is eating well. No H/o nausea, vomiting, blood in stool, bleeding from any other sites. Physical Exam Constitutional: WD/WN, vitals as above Eyes: PERRL, conjunctivae normal, anicteric sclerae ENMT: external ear and nose normal, oropharynx normal Neck: trachea midline, no thyromegaly Respiratory: normal respiratory effort, lungs clear to auscultation Cardiovascular: RRR, no murmur, no edema Gastrointestinal (Abdomen): normal bowel sounds, soft, nontender, no hepatosplenomegaly Musculoskeletal: no cyanosis or clubbing, extremities motor strength 5/5 Neurologic: patellar DTR's 2+ bilat, sensation intact Psychiatric: A+Ox3, euthymic affect Genitourinary: no testicular masses, no penis abnormality Lymphatic: no cervical or axillary lymphadenopathy Results & Data Results & Data Vital Signs (Past 12 Hours) Vital Signs Temp Pulse Resp BP Pulse Ox O2 Del Method 11/29/24 07:16 36.6 C 61 18 109/69 96 Room Air Laboratory Results Iron panel, Ferritin, CMP , cbc reviewed.
--- NOTE | 2024-11-29 17:03 | Billing Data ---
Date of Service November 29, 2024 Coding Level of Care Code 52707 SUB INP/OBS CARE
[2024-11-29] MEDS: POTASSIUM CHLORIDE 20 MEQ/15 ML UDC PO SCH (19:46)
[2024-11-30 08:40] LABS: Hematocrit (blood only) 38.4 % (42.0-52.0); Hemoglobin 13.4 g/dl (14.0-18.0); Mean Corpuscular Hemoglobin 31.8 pg (25.0-34.0); Mean Corpuscular Volume 91.0 fL (80.0-100.0); Platelet Count 258 K/uL (130-400); RDW Standard Deviation 50.4 fL (36.4-46.3); Red Blood Count 4.22 M/uL (4.70-6.10); White Blood Count 8.55 K/ul (4.8-10.8)
[2024-11-30 09:23] LABS: Anion Gap 6.0 (3-11); Blood Urea Nitrogen 7.0 mg/dl (6-23); Calcium 8.0 mg/dl (8.6-10.3); Carbon Dioxide 19.0 mmol/L (21-32); Chloride 109.0 mmol/L (98-107); Creatinine Clr Calc Pharmacy 71.1 ml/min; Glucose 103.0 mg/dl (70-99(Fasting)); Magnesium 1.7 mg/dl (1.7-2.4); Potassium 3.9 mmol/L (3.5-5.1); Sodium 134.0 mmol/L (136-145)
[2024-11-30 10:10] LABS: Thyroid Stimulating Hormone 74.771 uIu/ml (0.300-4.500)
--- NOTE | 2024-11-30 13:09 | Hospitalist Progress Note ---
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 He had acute worsening of his symptoms that began on Thursday 11/23. #Colitis/Nausea, vomiting, and diarrhea CTA: gastroenteritis w/ no specific findings of mesenteric ischemia Stool calprotectin pending. Colonoscopy 11/27: erythematous thickened folds & ulcerated mucosa in cecum. Erythematous & ulcerated mucosa in sigmoid, descending, transverse, ascending. --> path results still pending. Iron panel: Fe 35, Ferritin 176.2, Transferrin 182, transferrin sat 14% Lomotil BID scheduled. Cholestyramine BID scheduled. #Hypothyroidism significant elevation secondary to poor absorption of PO given he takes it with a PPI & his excessive diarrhea TSH on 11/24: 115 w/ improvement to 74 on 11/21. s/p IV Levothyroxine Transition to 150mcg Levothyroxine PO daily. --> hopeful given diarrhea has slowed down he will be able to absorb PO now. #MINOO - resolved Prerenal in setting of dehydration from GI loss Creatinine 1.52 on arrival, now 1.00 #Non AG metabolic acidosis-from GI losses control diarrhea consider adding on NaHCO3 tabs if worsening follow BMP #Hypokalemia/hypocalcemia/hypomagnesemia Mild, ongoing due to GI losses and poor p.o. intake. K 3.9, Mag 1.7 AM BMP, mag, phosphorous #HTN BPs are controlled Continue metoprolol, aspirin Hold home chlorthalidone, olmesartan #HLD - Continue atorvastatin #Anxiety disorder-continue home bupropion #Gout-no acute issues- Continue allopurinol DVT prophylaxis- Lovenox to be continued. Disposition-hopeful discharge 12/01 Admission and Anticipated Discharge Date Admission Date: November 26, 2024 Daniel Gonzalez seen and examined this morning. He reports that his bowels are slowly improving. Since yesterday evening he had 4 BM's at time of my encounter. States his stools are slowly becoming more formed. Denied any additional complaints. Physical Exam Constitutional: WD/WN, vitals as above Eyes: PERRL, conjunctivae normal, anicteric sclerae Respiratory: normal respiratory effort Skin: no rashes, warm and dry Neurologic: PERRL, EOMI, accommodation nl, no face palsy, no dysarthria Psychiatric: A+Ox3, euthymic affect Results & Data Results & Data Vital Signs (Past 12 Hours) Vital Signs Temp Pulse Resp BP Pulse Ox O2 Del Method 11/30/24 11:32 36.5 C 67 16 107/72 97 Room Air 11/30/24 08:07 36.4 C L 64 18 120/75 98 Room Air PG Care Time/CCT Total # of Minutes Spent Total Time Spent with Patient: Total time spent is greater than 50% in coordination of care (as documented) at patient's floor/unit and/or counseling patient: Coding Level of Care Code 89886 SUB INP/OBS CARE 2/35MIN Diagnoses Colitis K52.9 Nausea vomiting and diarrhea R11.2; R19.7 Hypokalemia E87.6 Hypothyroidism E03.9
[2024-12-01] MEDS: LEVOTHYROXINE SODIUM 150 MCG TABLET PO SCH (06:07)
[2024-12-01 07:24] LABS: Hematocrit (blood only) 41.4 % (42.0-52.0); Hemoglobin 14.1 g/dl (14.0-18.0); Mean Corpuscular Hemoglobin 31.1 pg (25.0-34.0); Mean Corpuscular Volume 91.4 fL (80.0-100.0); Platelet Count 260 K/uL (130-400); RDW Standard Deviation 50.5 fL (36.4-46.3); Red Blood Count 4.53 M/uL (4.70-6.10); White Blood Count 10.12 K/ul (4.8-10.8)
[2024-12-01 07:38] VITALS: RESP 16; TEMP 97.9; O2SAT 92
[2024-12-01 07:40] LABS: Anion Gap 6.0 (3-11); Blood Urea Nitrogen 8.0 mg/dl (6-23); Calcium 8.5 mg/dl (8.6-10.3); Carbon Dioxide 19.0 mmol/L (21-32); Chloride 111.0 mmol/L (98-107); Creatinine Clr Calc Pharmacy 64.1 ml/min; Glucose 118.0 mg/dl (70-99(Fasting)); Magnesium 1.7 mg/dl (1.7-2.4); Potassium 4.3 mmol/L (3.5-5.1); Sodium 136.0 mmol/L (136-145)
--- NOTE | 2024-12-01 08:20 | Gastroenterology Progress Note ---
Date of Service December 01, 2024 Assessment & Plan (1) Colitis: Plan: Endoscopic appearance and pathology consistent with ischemic colitis atypical is that is not confined to the watershed area. SMA and celiac appear patent. Can be discharged. Follow-up appointment to keep December 17. Would discharge on baby aspirin daily. Admission and Anticipated Discharge Date Admission Date: November 26, 2024 Subjective Diarrhea colitis Patient about 60% improved states diarrhea less tolerating p.o. Reviewed pathology report and endoscopic images. Changes and biopsies consistent with ischemic colitis. There is a history of E. coli though that test was negative on this current admission. He did have a CTA because of changes in the cecum. The SMA appears patent. There was some flow issues in the [place]. Ischemic colitis usually will resolve on its own. Management would be frequent smaller meals bland diet till symptoms have resolved completely. A platelet inhibitor such as aspirin may be of benefit. Patient should follow-up in GI office has an appointment already on December 17. Patient told to return if pain with eating blood or mucus with bowel movements fevers or chills. Physical Exam Physical Exam: Patient sitting up at the bedside eating breakfast. Peers in no distress. Benign abdomen Results & Data Results & Data Vital Signs (Past 12 Hours) Vital Signs Temp Pulse Resp BP Pulse Ox O2 Del Method 12/01/24 07:37 36.6 C 79 16 114/77 92 Room Air PG Care Time/CCT Total # of Minutes Spent Total Time Spent with Patient: Total time spent is greater than 50% in coordination of care (as documented) at patient's floor/unit and/or counseling patient: Coding Level of Care Code 68977 SUB INP/OBS CARE 06/06MIN Diagnoses Colitis K52.9
--- NOTE | 2024-12-01 09:47 | Discharge Summary ---
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 He had acute worsening of his symptoms that began on Thursday 11/23. #Colitis/Nausea, vomiting, and diarrhea CTA: gastroenteritis w/ no specific findings of mesenteric ischemia Stool calprotectin pending. Colonoscopy 11/27: erythematous thickened folds & ulcerated mucosa in cecum. Erythematous & ulcerated mucosa in sigmoid, descending, transverse, ascending Pathology from colonoscopy: mild to focally moderate acute & chronic inflammation, maintenance of glandular architecture, focal "withering" of glands & erosions of mucosal surface. Discussed w/ GI 12/01 -> pathology consistent w/ ischemic colitis. Continue antidiarrheals, has office follow up 12/17 Iron panel: Fe 35, Ferritin 176.2, Transferrin 182, transferrin sat 14% Lomotil q6h scheduled & Cholestyramine BID scheduled.--> to be continued on discharge. #Hypothyroidism significant elevation secondary to poor absorption of PO given he takes it with a PPI & his excessive diarrhea TSH on 11/24: 115 w/ improvement to 74 on 11/21. s/p IV Levothyroxine Transition to 150mcg Levothyroxine PO daily. --> hopeful given diarrhea has slowed down he will be able to absorb PO now. #MINOO - resolved Prerenal in setting of dehydration from GI loss Creatinine 1.52 on arrival, now 1.11 #Non AG metabolic acidosis-from GI losses control diarrhea #Hypokalemia/hypocalcemia/hypomagnesemia - resolved Mild, secondary to GI losses and poor p.o. intake. K 4.3, Mag 1.7, phosphorous 2.7, Calcium 8.5 #HTN BPs are controlled Continue metoprolol, aspirin Hold chlorthalidone, olmesartan until seen by PCP --> pressures have remained stable w/o this. #HLD - Continue atorvastatin #Anxiety disorder-continue home bupropion #Gout-no acute issues- Continue allopurinol Discharged home 12/01. Admission HPI Per Admitting Provider Mr. Mccain is a pleasant 74-year-old male with PMH of EPEC colitis, gout, HLD, and HTN. He presented on 11/26 at the behest of his GI providers for ongoing N/V/D. Recent hospitalization for similar at [facility] from 10/26 - 10/28. Patient reports he was doing well when he left the hospital. Then on Thursday 11/23, he had acute onset of vomiting x 6 times. He reports this significantly wore him out, and while he has not vomited since, he has had nausea throughout the week. His diarrhea has been ongoing over the past month. Patient just saw gastro enterology on Friday 11/24, and had blood work and x-rays done. GI then called him on the morning of 11/26, and he reports he was feeling worse; they recommended he go to the emergency department for elevated creatinine levels. Patient has been able to tolerate fluids at home as well as his daily medications. He took his regular morning medicine today and was able to keep them down. He has had very little to eat, but is able to keep some solids down. He reports his diarrhea has been liquidy in consistency over the past 1.5 months. No blood in stool. No antibiotic use since last October. Patient has been taking Imodium every 4-5 hours to help slow the diarrhea down, but this has not been working. He has been taking Zofran at home for nausea, and does report this is working (patient requesting a refill on Zofran at the [facility] in [place] when he leaves the hospital). Normally, he does not have abdominal pain, but does have abdominal cramping that is alleviated by using the restroom. He denies prior history of IBS, Crohn's disease, ulcerative colitis, or C. difficile. Last colonoscopy in 2019. he denies smoking, tobacco use, recent alcohol use. Patient's vitals are stable at time admission. ED course: K rider 10mEq x 1 LR 1000 mL IV NSS 1000 mL IV ROS: Patient endorses intractable vomiting on 11/23 (resolved), nausea ongoing diarrhea despite imodium q4h, and abdominal cramping. Patient denies fever, chills, night-sweats, dizziness, lightheadedness, MCCORMICK, chest pain, SOB, pleuritic CP, changes in urinary habits, or numbness/tingling/cramping in the legs. 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 Mccain, You were recently hospitalized for ongoing GI symptoms including diarrhea. You underwent a colonoscopy and were found to have ischemic colitis which is the cause of your symptoms. This is being treated accordingly with anti diarrheal medications and you have had improvement. Please see recommendations below regarding your discharge. Please take Lomotil every 6 hours. Please take Cholestyramine twice daily. Please continue your daily aspirin. Your Levothyroxine (Synthroid) has been adjusted to 150mcg daily (previously 6x/week). An updated script has been sent to your pharmacy. Your follow up with GI is set for December 17, 2024. Their phone number is above if you have any further questions. Your blood pressure has been normal during your hospital stay. Please hold your Olmesartan & Chlorthalidone until seen by your PCP. Please follow up with your PCP within 1-2 weeks of discharge. At this visit you will need your thyroid rechecked to ensure your numbers are still improving. Best of luck! Cori Simon PA-C Pending Studies at Discharge: No Stand-Alone Forms: [employer], Smoking Cessation Medications and DC Order Prescriptions: New diphenoxylate-atropine 2.5-0.025 mg Tablet 1 tab PO Q6H Qty: 60 0RF levothyroxine [Synthroid] 150 mcg Tablet 150 mcg PO DAILYBB Qty: 30 0RF Prevalite 4 gram Powder In Packet 4 g PO BID@1000,2200 Qty: 42 0RF Continued bupropion HCl 150 mg tablet sustained-release 12 hr 150 mg PO BID Qty: 180 3RF allopurinol 300 mg tablet 300 mg PO DAILY Qty: 90 3RF Hold Instructions: Resume on 10/21/24. atorvastatin 20 mg tablet 20 mg PO QPM Qty: 90 3RF Hold Instructions: Resume on 10/21/24. metoprolol tartrate 25 mg tablet 25 mg PO BID Qty: 180 3RF Hold Instructions: Resume on 10/27/24. Hold off metoprolol 25mg PO bid for as long as you have diarrhea as this medication can lower your blood pressure when you are dehydrated from diarrhea. pantoprazole 20 mg tablet,delayed release (DR/EC) 20 mg PO DAILY Qty: 30 2RF [facility] 50 mg-15 unit- 4.5 mg-2.5 mg tablet,chewable 1 tab PO DAILY aspirin 81 mg Tablet,Delayed Release (Dr/Ec) 81 mg PO QAM cyanocobalamin (vitamin B-12) [Vitamin B-12] 1,000 mcg Tablet 1,000 mcg PO DAILY cholecalciferol (vitamin D3) [Vitamin D3] 50 mcg (2,000 unit) Tablet 50 mcg PO DAILY loperamide 2 mg Capsule 2 mg PO Q4 MDD 16 mg per day PRN (Reason: loose stool) Qty: 180 0RF Held olmesartan 40 mg tablet 40 mg PO DAILY Qty: 90 2RF Hold Instructions: Resume on 10/27/24. Hold off your home-scheduled olmesartan 40mg PO daily for as long as you have diarrhea, as this medication can lower your blood pressure when you are dehydrated from diarrhea. potassium chloride 20 mEq tablet extended release 20 meq PO DAILY Qty: 30 0RF Hold Instructions: Resume on 12/10/24. until chlorthalidone resumed chlorthalidone 25 mg tablet 25 mg PO DAILY Hold Instructions: Resume on 12/10/24. until seen by PCP Discontinued levothyroxine 150 mcg tablet 150 mcg PO 6XWK Qty: 90 3RF Rx Instructions: Take 1 tab daily in AM EXCEPT SUNDAYS No Action ondansetron HCl 4 mg tablet 4 mg PO Q8H PRN (Reason: nausea and vomiting) Qty: 30 0RF Discharge Orders: Discharge Order (Routine); Ordered 12/01/24 Ordered By: Cori Simon Admission Data Admit Date/Time: 11/26/24 14:12 Attending Provider: Melquiades Bland Admit Provider: Melony Shah Primary Care Provider: Regina Howe Other Providers: Howie Shannon Other Interventions: Discharge Summary Assessment (RN) Last Done: 12/01/24 10:07 Hospital Stay Data Consultations 11/26/24 13:03 ED Decision to Admit Stat 11/26/24 14:12 Consult Gastroenterology Routine Procedures Performed Operation Date: 11/27/24 16:55 Actual Procedures p Colonoscopy Biopsy Cytology - Howie Shannon, Diagnostic Imagining Performed 11/26/24 14:09 CT Abdomen and Pelvis [CT abd pelvis wo con] Stat 11/27/24 18:26 CTA abdomen pelvis w con [CT angio abdomen pelvis w con] Routine Pending Results Patient Have Any Pending Studies at Discharge: No Discharge Instructions Given to Patient (Per Discharging Provider) Mr. Mccain, Trevor were recently hospitalized for ongoing GI symptoms including diarrhea. You underwent a colonoscopy and were found to have ischemic colitis which is the cause of your symptoms. This is being treated accordingly with anti diarrheal medications and you have had improvement. Please see recommendations below regarding your discharge. Please take Lomotil every 6 hours. Please take Cholestyramine twice daily. Please continue your daily aspirin. Your Levothyroxine (Synthroid) has been adjusted to 150mcg daily (previously 6x/week). An updated script has been sent to your pharmacy. Your follow up with GI is set for December 17, 2024. Their phone number is above if you have any further questions. Your blood pressure has been normal during your hospital stay. Please hold your Olmesartan & Chlorthalidone until seen by your PCP. Please follow up with your PCP within 1-2 weeks of discharge. At this visit you will need your thyroid rechecked to ensure your numbers are still improving. Best of luck! Cori Simon PA-C Supervising Physician Co-Signing Physician Notes Attending Attestation & Discharge Note: Chart reviewed, discharge care plan d/w SANGITA Simon. I agree w/ the nesbitt components of her discharge documentation. Of note - I did not perform bedside visit or perform exam on day of discharge. 74yo male with h/o EPEC colitis requiring hospitalization at [facility] from 10/26 to 10/28, gout, HTN. Presented on 11/26 due to ongoing nausea, vomiting, and diarrhea. Vomiting began on 11/23, and the diarrhea has been present since his October hospital stay. Patient just saw [facility] [place] on Friday 11/24, and had blood work/etc. EGD/colonoscopy were recommended. Due to worsening of symptoms along with multiple blood work abnormalities (electrolyte derangements, elevated creatinine, etc) he came to the ER for evaluation. CT abd/pelvis at admission showed a long segment of transverse colon wall thickening with surrounding inflammation as well as mesenteric venous gas and portal venous gas. Stool Biofire was negative. C diff was negative. On 11/27 he underwent colonoscopy which showed the following: Findings: - The perianal examination was normal. - A localized area of severely erythematous, thickened folds of the and ulcerated mucosa was found in the cecum. Biopsies were taken with a cold forceps for histology. - A diffuse area of moderately erythematous and ulcerated mucosa was found in the rectum, in the sigmoid colon, in the descending colon, in the transverse colon and in the ascending colon. Biopsies were taken with a cold forceps for histology. - Internal hemorrhoids were found during retroflexion. The hemorrhoids were small. Pathology ultimately returned with findings consistent with ischemic colitis. GI advised once daily baby aspirin. He was started on cholestyramine twice daily and lomotil for the diarrhea. Diarrhea did improve with the above. He will need close f/u with [facility] after discharge; follow-up is scheduled for December. Low fiber diet advised. Other issues including hypothyroidism addressed by Ms Simon. Melquiades Bland MD Total Time Total Time Spent Total Time Spent (In Minutes): 55 Total Time Includes: Examination of the Patient, Discharge Planning, Medication Reconciliation and Communication With Other Providers Coding Level of Care Code 87892 INP/OBS DISCH >30 MIN Diagnoses Colitis K52.9 Nausea vomiting and diarrhea R11.2; R19.7 Hypokalemia E87.6 Hypothyroidism E03.9
[2024-12-01 10:12] VITALS: BP 114/74; PULSE 54
== END 2024-12-01 11:00 | disposition home or self-care (01) | DRG 394 ==
LOC: SUATTDRO → ED 09:53 → SUATTDRO 14:12 → 3N 14:12